=== PATIENT | female | born 1975 | race Caucasian/White ===

== ENCOUNTER → 2023-03-25 | Outpatient (CLI) | payer OTHER, SELFPAY ==
[2023-03-25 17:57] LABS: Erythrocyte Sedimentation Rate 10 mm/hr (0-30)
[2023-03-25 17:58] LABS: Absolute Lymphocyte Count 3.03 X10^3/uL (0.83-4.51); Absolute Neutrophil Count 4.4 X10^3/uL (2.0-7.7); Basophil# 0.04 X10^3/uL; Basophil% 0.5 % (0-1); Eosinophil# 0.38 X10^3/uL; Eosinophils% 4.5 % (0-5); Hematocrit 44.3 % (37-47); Hemoglobin 14.5 g/dL (12.0-15.0); Lymphocyte # 3.03 X10^3/ul (0.83-4.51); Lymphocyte % 35.7 % (19-41); Mean Corp Hgb Conc 32.7 g/dL (32-36); Mean Corpuscular Hgb 31.3 pg (27.0-32.0); Mean Corpuscular Volume 95.7 fL (81-99); Mean Platelet Vol. 10.8 fl (6.2-12.0); Monocyte# 0.65 X10^3/uL; Monocyte% 7.7 % (0-10); NRBC Flagged by Analyzer 0 % (0-5); Neutrophil # 4.36 X10^3/uL (2.7-7.7); Neutrophil % 51.4 % (47-70); Platelet Count 288 K/mm3 (150-450); RBC Distribution Width CV 14.6 % (11.6-14.6); RBC Distribution Width SD 51.4 fl (35.1-43.9); Red Blood Count 4.63 M/mm3 (4.2-5.4); White Blood Count 8.5 K/mm3 (4.4-11.0)
[2023-03-25 18:36] LABS: ALB/GLOB Ratio 0.9 RATIO (0.9-2.4); AST(SGOT) 26 U/L (15-37); Alanine Aminotransfer ALT/SGPT 39 U/L (13-56); Albumin, Serum 3.3 g/dL (3.2-5.0); Alkaline Phosphatase 70 U/L (45-117); Anion Gap 7 (5-15); BUN 13 mg/dL (7-18); BUN/Creat Ratio 21.8 RATIO (10-20); CRP < 2.90 mg/L (0.0-3.0); Calcium,Total 8.6 mg/dL (8.5-10.1); Chloride 106 mmol/L (98-107); EST Glomerular Filtration Rate 114 mL/min (>60); Est Glom Filt Rate - Afr Amer 138 mL/min (>60); Globulin 3.6 g/dL (2.2-4.2); Glucose 73 mg/dL (74-106); Protein, Total 6.9 g/dL (6.4-8.2); Sodium Level 140 mmol/L (136-145)
[2023-03-25 18:47] LABS: Hepatitis B Surface Antibody Non-Reactive; Hepatitis B Surface Antigen Non-Reactive (Nonreactive); Hepatitis C Antibody Non-Reactive (Nonreactive)
[2023-03-28 13:07] LABS: ANTINUCLEAR ANTIBODIES DIRECT Negative (Negative)
[2023-03-29 18:07] LABS: CCP IgG Antibodies > 250 units (0-19); QNTFERON TB Mitogen Value > 10.00 IU/mL (.); QNTFERON TB Nil Value 0.05 IU/mL (.); QNTFERON TB1+ Ag Value 0.07 IU/mL (.); QNTFERON TB2+ Ag Value 0.09 IU/mL (.); QNTIFERON TB Positive Criteria Negative (Negative)
== END | disposition home or self-care (01) ==
LOC: MTLAB 14:25
PROVIDERS: Referring Provider Internal Medicine Rheumatology; Visit Provider Internal Medicine Rheumatology
DX: M05.79 Rheumatoid arthritis with rheumatoid factor of multiple sites without organ or systems involvement (principal); Z79.899 Other long term (current) drug therapy
CPT/HCPCS: 36415; 80053; 85025; 85652; 86038; 86140; 86200; 86431; 86480; 86706; 86803; 87340

== ENCOUNTER → 2023-04-04 | Outpatient (CLI) | payer OTHER, SELFPAY ==
--- NOTE | 2023-04-04 10:50 | RAD_ITS ---
STUDY: X-RAY CHEST REASON FOR EXAM: Female, 47 years old. Pain. TECHNIQUE: Frontal and lateral views of the chest. COMPARISON: None. FINDINGS: The lungs are clear and expanded. There is no demonstrated pleural abnormality. Normal size heart. Normal mediastinum and nai. Normal visualized pulmonary arteries. Normal visualized aortic arch and descending thoracic aorta. Normal visualized thoracic spine. Normal visualized ribs, clavicles, and shoulders. No abnormality of the visualized soft tissue structures of the upper abdomen. RAD/Chest PA and Lateral IMPRESSION: Normal x-ray examination of the chest. Electronically Signed: Curt Andrade MD at 12:44 EST ,
== END | disposition home or self-care (01) ==
LOC: MTRAD 10:49
PROVIDERS: Referring Provider Internal Medicine Rheumatology; Visit Provider Internal Medicine Rheumatology
DX: M05.79 Rheumatoid arthritis with rheumatoid factor of multiple sites without organ or systems involvement (principal); M79.7 Fibromyalgia; Z79.899 Other long term (current) drug therapy
CPT/HCPCS: 71046

== ENCOUNTER → 2023-07-29 | Outpatient (CLI) | payer OTHER, SELFPAY ==
[2023-07-29 17:40] LABS: Absolute Lymphocyte Count 3.17 X10^3/uL (0.83-4.51); Absolute Neutrophil Count 3.3 X10^3/uL (2.0-7.7); Basophil# 0.05 X10^3/uL; Basophil% 0.6 % (0-1); Eosinophil# 0.31 X10^3/uL; Hematocrit 43.1 % (37-47); Hemoglobin 13.7 g/dL (12.0-15.0); Lymphocyte # 3.17 X10^3/ul (0.83-4.51); Lymphocyte % 41.2 % (19-41); Mean Corp Hgb Conc 31.8 g/dL (32-36); Mean Corpuscular Hgb 29.3 pg (27.0-32.0); Mean Corpuscular Volume 92.1 fL (81-99); Mean Platelet Vol. 10.6 fl (6.2-12.0); Monocyte# 0.85 X10^3/uL; NRBC Flagged by Analyzer 0 % (0-5); Neutrophil % 42.9 % (47-70); Platelet Count 258 K/mm3 (150-450); RBC Distribution Width CV 13.8 % (11.6-14.6); RBC Distribution Width SD 46.5 fl (35.1-43.9); Red Blood Count 4.68 M/mm3 (4.2-5.4); White Blood Count 7.7 K/mm3 (4.4-11.0)
[2023-07-29 18:03] LABS: AST(SGOT) 15 U/L (15-37); Alanine Aminotransfer ALT/SGPT 28 U/L (13-56); Albumin, Serum 3.4 g/dL (3.2-5.0); Alkaline Phosphatase 71 U/L (45-117); Anion Gap 4 (5-15); BUN 12 mg/dL (7-18); Calcium,Total 8.5 mg/dL (8.5-10.1); Chloride 106 mmol/L (98-107); Creatinine, Serum 0.57 mg/dL (0.55-1.02); EST Glomerular Filtration Rate 120 mL/min (>60); Est Glom Filt Rate - Afr Amer 145 mL/min (>60); Globulin 3.4 g/dL (2.2-4.2); Glucose 95 mg/dL (74-106); Potassium 3.6 mmol/L (3.5-5.1); Protein, Total 6.8 g/dL (6.4-8.2); Sodium Level 140 mmol/L (136-145)
== END | disposition home or self-care (01) ==
LOC: MTLAB 15:36
PROVIDERS: Referring Provider Internal Medicine Rheumatology; Visit Provider Internal Medicine Rheumatology
DX: M05.79 Rheumatoid arthritis with rheumatoid factor of multiple sites without organ or systems involvement (principal); M79.7 Fibromyalgia; Z79.899 Other long term (current) drug therapy
CPT/HCPCS: 36415; 80053; 85025

== ENCOUNTER → 2023-12-26 | Outpatient (CLI) | payer OTHER, SELFPAY ==
[2023-12-26 15:15] LABS: Absolute Lymphocyte Count 2.89 X10^3/uL (0.83-4.51); Absolute Neutrophil Count 7.1 X10^3/uL (2.0-7.7); Basophil# 0.04 X10^3/uL; Basophil% 0.4 % (0-1); Eosinophil# 0.14 X10^3/uL; Eosinophils% 1.3 % (0-5); Hematocrit 42.7 % (37-47); Hemoglobin 13.7 g/dL (12.0-15.0); Lymphocyte # 2.89 X10^3/ul (0.83-4.51); Lymphocyte % 26.7 % (19-41); Mean Corp Hgb Conc 32.1 g/dL (32-36); Mean Corpuscular Hgb 30.2 pg (27.0-32.0); Mean Corpuscular Volume 94.1 fL (81-99); Mean Platelet Vol. 10.5 fl (6.2-12.0); Monocyte# 0.64 X10^3/uL; Monocyte% 5.9 % (0-10); NRBC Flagged by Analyzer 0 % (0-5); Neutrophil # 7.11 X10^3/uL (2.7-7.7); Neutrophil % 65.5 % (47-70); Platelet Count 245 K/mm3 (150-450); RBC Distribution Width CV 13.9 % (11.6-14.6); Red Blood Count 4.54 M/mm3 (4.2-5.4); White Blood Count 10.8 K/mm3 (4.4-11.0)
[2023-12-26 16:00] LABS: AST(SGOT) 19 U/L (15-37); Alanine Aminotransfer ALT/SGPT 28 U/L (13-56); Albumin, Serum 3.4 g/dL (3.2-5.0); Alkaline Phosphatase 81 U/L (45-117); Anion Gap 4 (5-15); BUN 10 mg/dL (7-18); BUN/Creat Ratio 13.9 RATIO (10-20); Calcium,Total 8.8 mg/dL (8.5-10.1); Chloride 105 mmol/L (98-107); Creatinine, Serum 0.72 mg/dL (0.55-1.02); EST Glomerular Filtration Rate 91 mL/min (>60); Est Glom Filt Rate - Afr Amer 110 mL/min (>60); Globulin 3.4 g/dL (2.2-4.2); Glucose 95 mg/dL (74-106); Potassium 3.7 mmol/L (3.5-5.1); Protein, Total 6.8 g/dL (6.4-8.2); Sodium Level 138 mmol/L (136-145)
== END | disposition home or self-care (01) ==
PROVIDERS: Referring Provider Internal Medicine Rheumatology; Visit Provider Internal Medicine Rheumatology
DX: M05.751 Rheumatoid arthritis with rheumatoid factor of right hip without organ or systems involvement (principal); M79.7 Fibromyalgia; F41.9 Anxiety disorder, unspecified; Q66.70 Congenital pes cavus, unspecified foot; Z79.899 Other long term (current) drug therapy
CPT/HCPCS: 36415; 80053; 85025

== ENCOUNTER 2025-01-22 06:02 | Day surgery (SDC) | payer OTHER, SELFPAY ==
[2025-01-22] VITALS (11 sets, daily range): BP systolic 105–135; BP diastolic 66–81; PULSE 67–85; RESP 14–18; TEMP 36.2–36.9; O2SAT 94–100; BMI 40.1
--- OUTSIDE RECORDS SUMMARY | 2025-01-22 06:06 | XMS RPT_ITS | CCD ---
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 Name Role Phone Unavailable Primary Care Provider Unavaillise HANSEN MD, DR SANDOVAL Attending Unavailabl e ROMAN SIU-MECHATRONICS TECHNOLOGIST, [place] Primary Care Unavai labraleigh OWENS APRN-MECHATRONICS TECHNOLOGIST, ANITRA Attending Rachel OWENS APRN-MECHATRONICS TECHNOLOGIST, [place] Primary Care Unamanishai lucina OWENS APRN-MECHATRONICS TECHNOLOGIST, ANITRA Attending Rachel OWENS APRN-MECHATRONICS TECHNOLOGIST, [place] Primary Care YONY Douglas MD Attending Unavailable ROMAN SIU-MECHATRONICS TECHNOLOGIST, [place] Primary Care YONY Douglas MD Attending Unavailable ROMAN SIU-[place], [place] Primary Care YONY Douglas MD Attending Unavailable ROMAN SIU-MECHATRONICS TECHNOLOGIST, [place] Primary Care Unavai lable Unavailable Primary Care Provider Unavailabl e Care Physician, No Primary Primary Care Provider Unavailable Care Physician, No Primary Referring Provider Un available Dr. Devang Rhodes DO Attending Provider Maria Elena SOLIS, Dr. Olivo Attending Provider SELF Referring Unavailable ROMAN ANITRA Primary Care Unavailable MARTHA NIELSEN Attending Unavailable JADE SOLIS, DR SANDOVAL Attending Unavaillise e ROMAN SIU-MECHATRONICS TECHNOLOGIST, [place] Primary Care Unafilippo OWENS APRN-[place], ANITRA Consulting Rachel HANSEN MD, DR SANDOVAL Attending Unavaillise OWENS APRN-MECHATRONICS TECHNOLOGIST, [place] Primary Care Rachel HANSEN MD, DR SANDOVAL Attending Unavaillise e ROMAN SIU-MECHATRONICS TECHNOLOGIST, [place] Primary Care Unavai lucina DAVID, ANITRA Consulting Rachel HANSEN MD, DR SANDOVAL Attending Valdez DAVID, ANITRA Primary Care Rachel DAVID, ANITRA Attending Rachel DAVID, ANITRA Primary Care Rachel labraleigh Care Physician, No Primary Primary Care Unava ilable Geovani Arredondo Attending Unavailable Devang Rhodes Attending Unavailable Care Physician, No Primary Referring Unava ilable Care Physician, No Primary Primary Care Unava ilable Care Physician, No Primary Primary Care Unava ilable Devang Rhodes Attending Unavailable Allergies Allergy Classification Reported Allergen(s) Allergy Type Date of Onset Reaction(s) Facility (4 sources) Acetaminophen / HYDROcodone; Translations: [HYDROCODONE-ACETA MINOPHEN] Drug Allergy 9 Rash, Itching [facility] (2 sources) Acetaminophen Drug Allergy 5 [facility] (2 sources) HYDROcodone Drug Allergy 5 [facility] (1 source) Acetaminophen Drug Allergy [address] [facility] (1 source) HYDROcodone Drug Allergy [address] [facility] Medications Current Medications Medication Drug Class(es) Dates Sig (Normalized) Sig (Original) acetaminophen 325 mg oral tablet (2 sources) Start: 12-19-2024 take 1 tablet by mouth once as needed Acetaminophen (Tylenol) 325 mg tablet Active 325 mg PO ONCE as needed December 19, 2024 12:00am amoxicillin 500 mg oral capsule (1 source) Penicillin-class Antibacterial Start: 04-19-2023 End: 04-29-2023 take 2 capsules by mouth twice daily amoxicillin (AMOXIL) 500 mg capsule Indications: Strep throat Take 2 capsules by mouth two times a day for 10 days. 40 capsule 0 04/19/2023 04/29/2023 Active Comment on above: Take 2 capsules by m outh two times a day for 10 days. 1 ml etanercept 50 mg/ml auto-injector (2 sources) Tumor Necrosis Factor Lavonne Start: 12-19-2024 Etanercept (Enbrel Sureclick) 50 mg/mL (1 mL) pen injector Active 50 mg SC EVERY WEEK December 19, 2024 12:00am folic acid 1 mg oral tablet (3 sources) Start: 12-19-2024 take 2 tablets by mouth once daily Folic Acid 1 mg tablet Active 2 mg PO daily December 19, 2024 12:00am Start: 04-04-2023 take 1 tablet by mouth once fo lic acid 1 mg tablet Take 1 tablet by mouth every afternoon. 0 04/04/2023 Active Comment on above: Take 1 tablet by netta th every afternoon. gabapentin 100 mg oral capsule (2 sources) Anti-epileptic Agent Start: 5 take 1 capsule by mouth three times daily Gabapentin 100 mg capsule Active 100 mg PO THREE TIMES A DAY December 19, 2024 12:00am meloxicam 15 mg oral tablet (5 sources) Nonsteroidal Anti-inflammatory Drug Start: 5 take 1 tablet by mouth once daily as needed Meloxicam 15 mg tablet Active 15 mg PO daily as needed December 19, 2024 12:00am Start: 09-20-2022 take 1 tablet by netta th once daily at mealtime meloxicam (MOBIC) 15 mg tablet TAKE ONE TABLET BY MOUTH EVERY DAY. TAKE WITH FOOD / MILK 09/20/2022 Active Comment on above: TAKE ONE TABLET BY M OUTH EVERY DAY. TAKE WITH FOOD / MILK methotrexate 2.5 mg oral tablet (3 sources) Folate Analog Metabolic Inhibitor Start: 12-19-2024 Methotrexate Sodium 2.5 mg tablet Active 20 mg PO EVERY WEEK December 19, 2024 12:00am Start: 04-02-2023 methotrexate 2 .5 mg tablet Take 15 mg by mouth. 0 04/02/2023 Active Comment on above: Take 15 mg by mouth. valACYclovir 1000 mg oral tablet (1 source) Herpesvirus Nucleoside Analog DNA Polymerase Inhibitor, Herpes Simplex Virus Nucleoside Analog DNA Polymerase Inhibitor, Herpes Zoster Virus Nucleoside Analog DNA Polymerase Inhibitor Start: 3 End: 3 take 1 tablet by mouth three times daily valACYclovir (VALTREX) 1 gram Indications: Herpes zoster without complication Take 1 tablet by mouth three times daily for 7 days. 21 tablet 0 10/14/2022 10/21/2022 Active Comment on above: Take 1 tablet by netta th three times daily for 7 days. Completed/Discontinued Medications Medication Drug Class(es) Dates Sig (Normalized) Sig (Original) PARoxetine hydrochloride 20 mg oral tablet (1 source) Serotonin Reuptake Inhibitor Start: 03-03-2023 take 1 tablet by mouth once PARoxetine (PAXIL) 20 mg tablet Take 1 tablet by mouth every afternoon. 0 03/03/2023 Active Comment on above: Take 1 tablet by netta th every afternoon. Problems Active Problems Problem Classification Problem Date Documented Date Episodic/Chronic Other ear and sense organ disorders (1 source) Impacted cerumen, right ear; Translations: [Impacted cerumen of right ear] Onset: 12-20-2024 Episodic Other non-traumatic joint disorders (1 source) Pain in right elbow; Translations: [Pain in right elbow] Onset: 12-19-2024 Episodic Other upper respiratory infections (1 source) Streptococcal sore throat; Translations: [Streptococcal pharyngitis] 04-19-2023 Episodic Otitis media and related conditions (1 source) Acute serous otitis media, right ear; Translations: [Non-recurrent acute serous otitis media of right ear] Onset: 12-20-2024 Episodic Rheumatoid arthritis and related disease (4 sources) Rheumatoid arthritis with rheumatoid factor of multiple sites without organ or systems involvement; Translations: [Inflammatory polyarthropathy] Onset: 12-08-2022 Chronic Viral infection (1 source) Herpes zoster without complication; Translations: [Zoster without complications] Episodic Past or Other Problems Problem Classification Problem Date Documented Date Episodic/Chronic Immunizations and screening for infectious disease (4 sources) Other specified abnormal immunological findings in serum; Translations: [Encounter for screening for other viral diseases] Onset: 11-01-2022 Episodic Results Test Name Value Interpretation Reference Range Facility [facility] 01-08-2025 Cholesterol [Mass/Vol] 177 mg/dL Normal 0-200 JUDAH MASSILLON Comment on above: Result Comment: Chol esterol Reference Interval: Less than 200 Desirable 200-239 Borderline high risk 240 and above High risk Performed By: #### L IPID #### [facility] [address] [place], [place] [address] #### TSHR, PTH #### [place] [address] Cholesterol in HDL [Mass/Vol] 53 mg/dL Normal 40-60 JUDAH MASSILLON Comment on above: Performed By: #### L IPID #### [facility] [address] [place], [place] [address] #### TSHR, PTH #### [place] [address] Cholesterol in LDL [Mass/Vol] 112 mg/dL Normal 0-130 JUDAH MASSILLON Comment on above: Performed By: #### L IPID #### [facility] [address] [place] [address] #### TSHR, PTH #### [place] [address] Triglyceride [Mass/Vol] 58 mg/dL Normal 0-150 JUDAH MASSILLON Comment on above: Performed By: #### L IPID #### [facility] [address] [place] [address] #### TSHR, PTH #### [place] [address] PTHon 01-08-2025 PTH, Intact 51.4 pg/mL Normal 18.5-88.0 JUDAH MASSILLON Comment on above: Performed By: #### L IPID #### [facility] [address] [place] [address] #### TSHR, PTH #### [place] [address] TSHRon 01-08-2025 TSH 2.649 mIU/mL Normal 0.550-4.780 JUDAH MASSILLON Comment on above: Performed By: #### L IPID #### [facility] [address] [place] [address] #### TSHR, PTH #### [place] [address] CNOVon 12-20-2024 CNOV Office Visit ([facility] ) BRANDI HOLCOMB ([id number]) 1975 F Date Time Provider Department 12/20/24 5:25 PM MARTHA NIELSEN During your visit today, we recorded the following information about you: Temperature Pulse Respiration Blood pressure 97.6 degrees 95/minute 18/minute 118/78 Weight 107.3 kg Kyung Foote LPN 12/20/2024 6:21 PM Signed Ambulatory Ear Lavage Pre-treatment: No pre-treatment Treatment: Right ear Equipment and Irrigation solution and Volume used: Single use syringe with single use irrigation tip Water Return flow appearance: Clear Debris Patient tolerated procedure: yes Tympanic membrane assessment: Tympanic membrane assessed by LIP pre and post procedure BOONE Machuca Edmund, DO 12/20/2024 6:01 PM Signed Otitis Media You have been diagnosed with otitis media. This is a middle ear infection. Otitis media is inflammation of the middle ear. It is most common in children 6 months to 3 years old. However, it can happen at any age. It is caused by either a bacteria or a virus and often follows a viral upper respiratory (lung) infection. Some otitis media symptoms are: Fever (temperature higher than 100.4?F / 38?C) and ear pain. There may also be a feeling of fullness in the ear or decreased hearing. If the eardrum ruptures (splits), there may also be drainage from the ear. In the [facility], otitis media is often treated with antibiotics. It is also often treated with pain medicines like acetaminophen (Tylenol?) or ibuprofen (Advil? or Motrin?) and sometimes with pain-relieving eardrops. In many other countries, otitis media is not treated with antibiotics. However, the outcome seems to be the same: The ear clears up on its own! Most cases of otitis media get better over 2-3 days with treatment. Take the antibiotic as directed and finish the whole prescription. Follow up with your doctor in 4-6 weeks. This will be to make sure the fluid in the middle ear has cleared. YOU SHOULD SEEK MEDICAL ATTENTION IMMEDIATELY, EITHER HERE OR AT THE NEAREST EMERGENCY DEPARTMENT, IF ANY OF THE FOLLOWING OCCURS: You do not get better, despite treatment. Symptoms become worse. A severe headache, stiff neck, lethargy (excessive fatigue and sleepiness) or confusion develops. Martha Nielsen DO 12/20/2024 6:21 PM Signed [facility] RAFAEL Bucknerfer L Zhang is a 49 year old female. Patient presents with: Ear Problem: Right ear pain x 1 week Ear Problem Right Ear Pain: - Acute onset of right ear pain, described as shooting pains, not constant. - Pain was severe upon waking, possibly due to lying on the affected ear. - Noted a lump behind the ear. - Recent travel to [place] approximately 1.5 weeks ago. - Denies use of Q-tips in ears, known insect bites, fevers, chills, chest pain, or dyspnea. - No pain in the external ear. Review of Systems HENT: Positive for ear pain. Constitutional: (-) fever, (-) chills Ears/Nose/Mouth/Throat: (+) right ear pain Cardiovascular: (-) chest pain Respiratory: (-) dyspnea Objective BP 118/78 Pulse 95 Temp 36.4 ?C (97.6 ?F) Resp 18 Wt 107.3 kg (236 lb 9.6 oz) SpO2 97% Physical Exam HENT: Nose: Congestion and rhinorrhea present. Mouth/Throat: Mouth: Mucous membranes are moist. Pharynx: Oropharynx is clear. No oropharyngeal exudate or posterior oropharyngeal erythema. Eyes: General: Right eye: No discharge. Left eye: No discharge. Conjunctiva/sclera: Conjunctivae normal. Pupils: Pupils are equal, round, and reactive to light. Musculoskeletal: Cervical back: Normal range of motion. No rigidity or tenderness. Lymphadenopathy: Cervical: No cervical adenopathy. General: No acute distress. HEENT: Right external ear canal erythema, cerumen impaction occluding approximately 50% of right ear canal, left ear canal normal, mild nasal congestion, no significant lymphadenopathy. CV: Normal heart sounds. Resp: Lungs clear to auscultation bilaterally. {ASSESSMENT/PLAN: 1. Non-recurrent acute serous otitis media of right ear - ICD9: 381.01, ICD10: H65.01 (primary diagnosis) - AMOXICILLIN 875 MG-POTASSIUM CLAVULANATE 125 MG TABLET - AMBULATORY EAR LAVAGE/IRRIGATION 2. Impacted cerumen of right ear - ICD9: 380.4, ICD10: H61.21 - Exam shows early signs of right-sided otitis media with approximately 50% cerumen impaction. - Attempted cerumen removal in clinic; if unsuccessful, will prescribe cerumenolytic drops for home use. Cerumen removal in clinic was successful, 100% of wax removed, tympanic membrane is still intact afterwards. - Augmentin will be written to help treat otitis media and prevent other symptoms. Get reevaluated if not improving after 1 week. - Advised use of Tylenol or ibuprofen for pain; encouraged adequate hydration and cl (more content not included)... Normal [facility] Elbow min 3 Viewson 12-20-19 Elbow min 3 Views [facility] [address] [place] [address] Elbow min 3 Views MR#: [id number] Acct: [id number] Name: BRANDI HOLCOMB Rep #: [id number] : 1975 F 49 From: Mike Stallworth PCP: Care Physician,No Primary Status: DEP AMB Study: Elbow min 3 Views Date of Exam: 12/19/24 Exam# [id number] Ordering Dr: Devang Rhodes DO PROCEDURE: ELBOW MIN 3 VIEWS 12/19/2024 REASON FOR EXAM: LUMP, PAIN TECHNIQUE: ELBOW MIN 3 VIEWS COMPARISON: None. RAD/Elbow min 3 Views IMPRESSION: No radiopaque foreign body is seen. A soft tissue prominence is seen posterior to the ulnar olecranon, possibly representing fluid within the olecranon bursa. No arthritic process or joint narrowing is seen. No right elbow joint effusion is noted. No fracture or dislocation is evident. Reading Location: [facility] CC: Dr. Devang Rhodes DO; No Primary Care Physician Carbonizer: Signed Normal [facility] Orthopedic Visit Reporton Orthopedic Visit Report [facility] [address] [place] [address] [address] [place] [address] OFFICE VISIT Date of Service: 12/19/24 MR#: [id number] Acct: [id number] Name: ZHANGBRANDINE Rep #: [id number] : 1975 Provider: Dr. Devang raphael DO Age/Sex: 49/F Location[place] [facility] Status: Signed Intake Vital Signs 12/19/24 09:01 Height 5 ft 4 in Weight: 233 lb BMI 39.9 Intake Visit Reasons: RIGHT ELBOW Allergies acetaminophen (From Vicodin) Allergy (Verified 12/19/24 09:01) Vomiting hydrocodone (From Vicodin) Allergy (Verified 12/19/24 09:01) Vomiting Medications ???Medication ???Instructions ???Recorded ???Confirmed ???Type acetaminophen 325 mg tablet 325 mg PO ONCE PRN 12/19/24 History (Tylenol) etanercept 50 mg/mL (1 mL) 50 mg subcut QWEEK 12/19/24 History subcutaneous pen injector (Enbrel SureClick) folic acid 1 mg tablet 2 mg PO QDAY 12/19/24 12/19/24 His tory gabapentin 100 mg capsule 100 mg PO TID 12/19/24 12/19/24 Hi story meloxicam 15 mg tablet 15 mg PO QDAY PRN 12/19/24 5 History methotrexate sodium 2.5 mg tablet 20 mg PO QWEEK 12/19/24 12/19/24 History PFSH Medical History (Updated 12/19/24 @ 10:[address] Devang Rhodes DO) Rheumatoid arthritis Surgical History (Updated 12/19/24 @ 09:04 by Sara Cabrera) History of right knee surgery History of partial hysterectomy Social History (Updated 12/19/24 @ 09:05 by Sara Cabrera) Smoking Status: Current every day smoker tobacco type: cigarettes alcohol intake: current alcohol intake frequency: holidays/special occasions only HPI RIGHT ELBOW Details: This documentation accurately reflects the service provided and the decisions made by me, Dr. Devang Rhodes DO 12/19/24 6010. Part of today???s visit was documented by Shirley COUCH, acting as scribe. BRANDI HOLCOMB is a 49 year old F referral from Dr. Hansen who is seropositive anti-CCP positive rheumatoid arthritis who also has lateral epicondylitis she is on methotrexate 20 mg/week and Enbrel 50 mg subcu once a week, meloxicam here today for right elbow pain that she has been having for 2 years. She denies any know injury and states that she thinks the pain is from arthritis. She does have a lump on the elbow that she states that Dr. Mulligan wants her to have it biopsied to see whether is is from her rheumatoid arthritis. She has had the lump for at least 4 years. She was diagnosed with rheumatoid 2 years ago. She denies having any treatment on the elbow. The nodule does bother her every time she rests her elbow down it aggravates. Ortho Exam General General: Yes no acute distress Neurologic: Yes alert and Yes oriented x3 Psychologic: Yes reasonable and appropriate Right Elbow Skin/Wound: No eccymosis, No erythema and No Swelling ELBOW: small 1.5cm nodule on tip of olecranon, it is mobile it is not infectious appearing there is no erythema there is no bursal swelling there is no joint effusion she got good elbow range of motion no collateral instability intact triceps tendon no pain with resisted extension No gross motor or sensory deficits Supplemental Info 12/19/2024 x-ray right elbow: There is no significant arthrosis there is soft tissue swelling just posterior to the olecranon. No joint effusion Coding Level of Care Code Off vis,new,level 3 Diagnoses Rheumatoid nodule of right elbow M06.321 Laterality: right Assessment and Plan Assessment and Plan (1) Rheumatoid nodule of elbow: Status: Acute Qualifiers: Laterality: right Qualified Code(s): M06.321 - Rheumatoid nodule, right elbow Orders: Orders Elbow min 3 Views Today M25.521 - Pain in right elbow Plan Patient is here today for right elbow nodule with pain. I spoke with patient that the nodule on her elbow is highly suggestive of a rheumatoid nodule, and clinically I am not concerned of it being n eoplastic it is not grown is consistent with a rheumatoid nodule. It does bother her daily, we can remove the nodule if she would want it to have it removed or we can leave it alone. My concern with removing the nodule is her rheumatoid medications cause immunosuppression and increase her risk for infection. Patient does wish to proceed with surgery for excision of right elbow nodule we will send it for pathology. She will need to hold her Meloxicam and Enbrel 1 week before surgery then she will also need to hold the Enbrel 1 week after surgery. Wrist benefits of surgery reviewed including risk of bleeding infection nerve artery tissue damage need with further surgery continued pain and nodule reoccurrence. Follow up at 2 weeks post-op or sooner if pain, swelling, numbness or associated symptoms, or concerns develop. All questions answered. P (more content not included)... Normal [facility] .Auto Diffon 11-22-2024 Basophil, Absolute 0.1 10 3/mcL Normal 0.0-0.3 ENMA MAN MASSILLON Comment on above: Performed By: #### G FR, CMP #### [facility] [address] [place], [place] [address] #### ANEU, CBC, ADIFF #### [address] [address] Basophils/100 WBC (Bld) 0.9 % Normal 0.0-2.5 JUDAH MASSILLON Comment on above: Performed By: #### G FR, CMP #### [facility] [address] [place], [place] [address] #### ANEU, CBC, ADIFF #### [address] [address] Eosinophil, Absolute 0.3 10 3/mcL Normal 0.0-0.7 JUDAH MASSILLON Comment on above: Performed By: #### G FR, CMP #### [facility] [address] [place] [id number] #### ANEU, CBC, ADIFF #### [address] [address] Eosinophils/100 WBC (Bld) 4.1 % Normal 0.0-6.0 JUDAH MASSILLON Comment on above: Performed By: #### G FR, CMP #### [facility] [address] [place], [place] [address] #### ANEU, CBC, ADIFF #### [address] [address] Lymphocyte, Absolute 2.3 10 3/mcL Normal 0.9-4.3 JUDAH MASSILLON Comment on above: Performed By: #### G FR, CMP #### [facility] [address] [place], [place] [address] #### ANEU, CBC, ADIFF #### [address] [address] Lymphocytes/100 WBC (Bld) 35.5 % Normal 20.0-40.0 JUDAH MASSILLON Comment on above: Performed By: #### G FR, CMP #### [facility] [address] [place], [place] [address] #### ANEU, CBC, ADIFF #### [address] [address] Monocyte, Absolute 0.7 10 3/mcL Normal 0.1-1.4 ENMA MAN MASSILLON Comment on above: Performed By: #### G FR, CMP #### [facility] [address] [place], [place] [address] #### ANEU, CBC, ADIFF #### [address] [address] Monocytes/100 WBC (Bld) 10.2 % Normal 2.0-13.0 JUDAH MASSILLON Comment on above: Performed By: #### G FR, CMP #### [facility] [address] [place], [place] [address] #### ANEU, CBC, ADIFF #### [address] [address] Neutrophils/100 WBC (Bld) 49.3 % Low 50.0-75.0 JUDAH MASSILLON Comment on above: Performed By: #### G FR, CMP #### [facility] [address] [place], [place] [address] #### ANEU, CBC, ADIFF #### [address] [address] .GFRon 11-22-2024 Estimated Glomerular Filtration Rate 107 ml/min/1.73sqm Normal JUDAH MASSILLON Comment on above: Result Comment: Stages of Chronic Kidney Disease (CKD) Stage Description eGFR(ml/min/1.73 sq.m.) CKD 1 Normal kidney function or >=90 normal kindney function with possible kidney damage (ex. Proteinuria) CKD 2 Kidney damage with mild loss 60-89 of kidney function CKD 3a Mild to moderate loss of kidney 45-59 function CKD 3b Moderate to severe loss of 30-44 of kindey function CKD 4 Severe loss of kidney function 15-29 CKD 5 Kidney failure <15 Note: (go live 2024) the eGFR calculation was updated to the 2020 CKD-EPI creatinine equation without a race factor to calculate the eGFR results. Performed By: #### G FR, CMP #### [facility] [address] [place] [id number] #### ANEU, CBC, ADIFF #### [place] [address] .NEUABSon 11-22-2024 Neutrophil, Absolute 3.2 10 3/mcL Normal 2.3-8.1 [facility] Comment on above: Performed By: #### G FR, CMP #### [facility] [address] [place] [address] #### ANEU, CBC, ADIFF #### [place] [address] CBCon 11-22-2024 Erythrocyte distribution width (RBC) [Ratio] 14.7 % Normal 11.5-15.5 GENESEE MASSILLON Comment on above: Performed By: #### G FR, CMP #### [facility] [address] [place] [id number] #### ANEU, CBC, ADIFF #### [place] [address] Hematocrit (Bld) [Volume fraction] 41.8 % Normal 34.0-46.0 [facility] Comment on above: Performed By: #### G FR, CMP #### [facility] [address] [place] [id number] #### ANEU, CBC, ADIFF #### [place] [address] Hgb 14.0 G/dL Normal 12.0-16.0 GENESEE MASSILLON Comment on above: Performed By: #### G FR, CMP #### [facility] [address] [place] [id number] #### ANEU, CBC, ADIFF #### [place] [id number] MCH (RBC) [Entitic mass] 31.9 pg Normal 27.0-33.0 JUDAH MASSILLON Comment on above: Performed By: #### G FR, CMP #### [facility] [address] [place] [address] #### ANEU, CBC, ADIFF #### [place] [address] MCHC 33.4 G/dL Normal 32.0-36.0 JUDAH MASSILLON Comment on above: Performed By: #### G FR, CMP #### [facility] [address] [place] [address] #### ANEU, CBC, ADIFF #### [place] [address] MCV (RBC) [Entitic vol] 95.5 fL Normal 80.0-99.0 JUDAH MASSILLO Comment on above: Performed By: #### G FR, CMP #### [facility] [address] [place] [address] #### ANEU, CBC, ADIFF #### [place] [address] Platelet 286 10 3/mcL Normal 150-450 JUDAH MASSILLON Comment on above: Performed By: #### G FR, CMP #### [facility] [address] [place] [address] #### ANEU, CBC, ADIFF #### [place] [address] Platelet mean volume (Bld) [Entitic vol] 9.2 fL Normal 6.6-10.5 JUDAH MASSILLON Comment on above: Performed By: #### G FR, CMP #### [facility] [address] [place] [address] #### ANEU, CBC, ADIFF #### [place] [address] RBC 4.38 10 6/mcL Normal 4.10-5.30 JUDAH MASSILLON Comment on above: Performed By: #### G FR, CMP #### [facility] [address] [place] [id number] #### ANEU, CBC, ADIFF #### [place] [address] WBC 6.4 10 3/mcL Normal 4.5-10.8 JUDAH MASSILLON Comment on above: Performed By: #### G FR, CMP #### [facility] [address] [place], [place] [address] #### ANEU, CBC, ADIFF #### [place] [address] CMPon 11-22-2024 Albumin Level 3.3 G/dL Low 3.5-5.0 JUDAH MASSILLON Comment on above: Performed By: #### G FR, CMP #### [facility] [address] [place] [address] #### ANEU, CBC, ADIFF #### [place] [address] Albumin/Globulin [Mass ratio] 1.0 {ratio} Low 1.1-2.5 JUDAH MASSILLON Comment on above: Performed By: #### G FR, CMP #### [facility] [address] [place] [id number] #### ANEU, CBC, ADIFF #### [place] [address] ALP [Catalytic activity/Vol] 79 U/L Normal 40-135 JUDAH MASSILLON Comment on above: Performed By: #### G FR, CMP #### [facility] [address] [place] [id number] #### ANEU, CBC, ADIFF #### [place] [id number] ALT [Catalytic activity/Vol] 39 U/L Normal 14-59 JUDAH MASSILLON Comment on above: Performed By: #### G FR, CMP #### [facility] [address] [place] [id number] #### ANEU, CBC, ADIFF #### [place] [id number] AST [Catalytic activity/Vol] 24 U/L Normal 10-40 JUDAH MASSILLON Comment on above: Performed By: #### G FR, CMP #### [facility] [address] [place], [place] [address] #### ANEU, CBC, ADIFF #### [address] [address] Bili Total 0.4 mg/dL Normal 0.2-1.0 JUDAH MASSILLON Comment on above: Result Comment: Use of this assay is not recommended for patients undergoing treatment with eltrombopag due to the potential for falsely elevated results. Performed By: #### G FR, CMP #### [facility] [address] [place] [id number] #### ANEU, CBC, ADIFF #### [address] [address] BUN/Creatinine Ratio 15 ratio Normal 7-27 JUDAH MASSILLON Comment on above: Performed By: #### G FR, CMP #### [facility] [address] [place] [id number] #### ANEU, CBC, ADIFF #### [address] [address] Calcium [Mass/Vol] 8.7 mg/dL Normal 8.4-10.2 AULTMA N MASSILLON Comment on above: Performed By: #### G FR, CMP #### [facility] [address] [place] [id number] #### ANEU, CBC, ADIFF #### [address] [address] Chloride [Moles/Vol] 105 mmol/L Normal 98-107 JUDAH MASSILLON Comment on above: Performed By: #### G FR, CMP #### [facility] [address] [place] [id number] #### ANEU, CBC, ADIFF #### [address] [address] CO2 [Moles/Vol] 28 mmol/L Normal 22-29 JUDAH MASSILLON Comment on above: Performed By: #### G FR, CMP #### [facility] [address] [place] [id number] #### ANEU, CBC, ADIFF #### [facility] [address] [place], [place] [id number] Creatinine [Mass/Vol] 0.66 mg/dL Normal 0.51-0.95 JUDAH MASSILLON Comment on above: Performed By: #### G FR, CMP #### [facility] [address] [place] [id number] #### ANEU, CBC, ADIFF #### [facility] [address] [place] [address] Electrolyte Balance 7.0 mEq/L Normal 4.0-15.0 AULTM AN MASSILLON Comment on above: Performed By: #### G FR, CMP #### [facility] [address] [place] [id number] #### ANEU, CBC, ADIFF #### [place] [address] Globulin 3.3 G/dL Normal 2.7-4.4 JUDAH MASSILLON Comment on above: Performed By: #### G FR, CMP #### [facility] [address] [place] [id number] #### ANEU, CBC, ADIFF #### [place] [address] Glucose [Mass/Vol] 127 mg/dL High 70-105 AULTMA N MASSILLON Comment on above: Performed By: #### G FR, CMP #### [facility] [address] [place] [id number] #### ANEU, CBC, ADIFF #### [place] [id number] Potassium [Moles/Vol] 3.8 mmol/L Normal 3.5-5.1 JUDAH MASSILLON Comment on above: Performed By: #### G FR, CMP #### [facility] [address] [place] [id number] #### ANEU, CBC, ADIFF #### [place] [id number] Sodium [Moles/Vol] 140 mmol/L Normal 136-145 AULTMA N MASSILLON Comment on above: Performed By: #### G FR, CMP #### [facility] [address] [place] [id number] #### ANEU, CBC, ADIFF #### [place] [address] Total Protein 6.6 G/dL Normal 6.4-8.2 JUDAH MASSILLON Comment on above: Performed By: #### G FR, CMP #### [facility] [address] [place] [address] #### ANEU, CBC, ADIFF #### [place] [address] Urea nitrogen [Mass/Vol] 10 mg/dL Normal 7-18 JUDAH MASSILLON Comment on above: Performed By: #### G FR, CMP #### [facility] [address] [place] [address] #### ANEU, CBC, ADIFF #### [place] [address] .Auto Diffon 08-27-2024 Basophil, Absolute 0.1 10 3/mcL Normal 0.0-0.3 ENMA MAN MASSILLON Comment on above: Performed By: #### G FR, CMP #### [facility] [address] [place] [address] #### ANEU, CBC, ADIFF #### [place] [address] Basophils/100 WBC (Bld) 0.7 % Normal 0.0-2.5 JUDAH MASSILLON Comment on above: Performed By: #### G FR, CMP #### [facility] [address] [place] [id number] #### ANEU, CBC, ADIFF #### [place] [address] Eosinophil, Absolute 0.3 10 3/mcL Normal 0.0-0.7 JUDAH MASSILLON Comment on above: Performed By: #### G FR, CMP #### [facility] [address] [place] [id number] #### ANEU, CBC, ADIFF #### [address] [address] Eosinophils/100 WBC (Bld) 4.0 % Normal 0.0-6.0 JUDAH MASSILLON Comment on above: Performed By: #### G FR, CMP #### [facility] [address] [place], [place] #### ANEU, CBC, ADIFF #### [facility] [address] [place] [address] Lymphocyte, Absolute 2.9 10 3/mcL Normal 0.9-4.3 JUDAH MASSILLON Comment on above: Performed By: #### G FR, CMP #### [facility] [address] [place], [place] [address] #### ANEU, CBC, ADIFF #### [address] [address] Lymphocytes/100 WBC (Bld) 39.0 % Normal 20.0-40.0 JUDAH MASSILLON Comment on above: Performed By: #### G FR, CMP #### [facility] [address] [place], [place] [address] #### ANEU, CBC, ADIFF #### [address] [address] Monocyte, Absolute 0.7 10 3/mcL Normal 0.1-1.4 ENMA MAN MASSILLON Comment on above: Performed By: #### G FR, CMP #### [facility] [address] [place] [id number] #### ANEU, CBC, ADIFF #### [address] [address] Monocytes/100 WBC (Bld) 9.6 % Normal 2.0-13.0 JUDAH MASSILLON Comment on above: Performed By: #### G FR, CMP #### [facility] [address] [place], [place] [address] #### ANEU, CBC, ADIFF #### [address] [address] Neutrophils/100 WBC (Bld) 46.7 % Low 50.0-75.0 JUDAH MASSILLON Comment on above: Performed By: #### Radha FR, CMP #### [facility] [address] [place] [id number] #### ANEU, CBC, ADIFF #### [place] [address] .GFRon 08-27-2024 Estimated Glomerular Filtration Rate 104 ml/min/1.73sqm Normal [facility] Comment on above: Result Comment: Stages of Chronic Kidney Disease (CKD) Stage Description eGFR(ml/min/1.73 sq.m.) CKD 1 Normal kidney function or >=90 normal kindney function with possible kidney damage (ex. Proteinuria) CKD 2 Kidney damage with mild loss 60-89 of kidney function CKD 3a Mild to moderate loss of kidney 45-59 function CKD 3b Moderate to severe loss of 30-44 of kindey function CKD 4 Severe loss of kidney function 15-29 CKD 5 Kidney failure <15 Note: (go live 2024) the eGFR calculation was updated to the 2020 CKD-EPI creatinine equation without a race factor to calculate the eGFR results. Performed By: #### Radha THEODORE, CMP #### [facility] [address] [place] [address] #### ANEU, CBC, ADIFF #### [place] [address] .NEUABSon 08-27-2024 Neutrophil, Absolute 3.5 10 3/mcL Normal 2.3-8.1 [facility] Comment on above: Performed By: #### Radha FR, CMP #### [facility] [address] [place] [id number] #### ANEU, CBC, ADIFF #### [place] [address] CBCon 08-27-2024 Erythrocyte distribution width (RBC) [Ratio] 14.9 % Normal 11.5-15.5 JUDAH MASSILLON Comment on above: Performed By: #### Radha FR, CMP #### [facility] [address] [place] [id number] #### ANEU, CBC, ADIFF #### [place] [address] Hematocrit (Bld) [Volume fraction] 43.6 % Normal 34.0-46.0 [facility] Comment on above: Performed By: #### G FR, CMP #### [facility] [address] [place] [id number] #### ANEU, CBC, ADIFF #### [facility] [address] [place] [address] Hgb 14.3 G/dL Normal 12.0-16.0 [facility] Comment on above: Performed By: #### G FR, CMP #### [facility] [address] [place] [address] #### ANEU, CBC, ADIFF #### [place] [address] MCH (RBC) [Entitic mass] 31.3 pg Normal 27.0-33.0 [facility] Comment on above: Performed By: #### G FR, CMP #### [facility] [address] [place] [id number] #### ANEU, CBC, ADIFF #### [place] [address] MCHC 32.8 G/dL Normal 32.0-36.0 [facility] Comment on above: Performed By: #### G FR, CMP #### [facility] [address] [place] [id number] #### ANEU, CBC, ADIFF #### [place] [address] MCV (RBC) [Entitic vol] 95.2 fL Normal 80.0-99.0 [facility] Comment on above: Performed By: #### G FR, CMP #### [facility] [address] [place] [id number] #### ANEU, CBC, ADIFF #### [place] [address] Platelet 253 10 3/mcL Normal 150-450 [facility] Comment on above: Performed By: #### G FR, CMP #### [facility] [address] [place] [id number] #### ANEU, CBC, ADIFF #### [place] [address] Platelet mean volume (Bld) [Entitic vol] 8.6 fL Normal 6.6-10.5 JUDAH MASSILLON Comment on above: Performed By: #### G FR, CMP #### [facility] [address] [place] [address] #### ANEU, CBC, ADIFF #### [place] [address] RBC 4.58 10 6/mcL Normal 4.10-5.30 JUDAH MASSILLON Comment on above: Performed By: #### G FR, CMP #### [facility] [address] [place] [address] #### ANEU, CBC, ADIFF #### [place] [address] WBC 7.6 10 3/mcL Normal 4.5-10.8 JUDAH MASSILLON Comment on above: Performed By: #### G FR, CMP #### [facility] [address] [place] [address] #### ANEU, CBC, ADIFF #### [place] [address] CMPon 08-27-2024 Albumin Level 3.4 G/dL Low 3.5-5.0 JUDAH MASSILLON Comment on above: Performed By: #### G FR, CMP #### [facility] [address] [place] [address] #### ANEU, CBC, ADIFF #### [place] [address] Albumin/Globulin [Mass ratio] 1.0 {ratio} Low 1.1-2.5 JUDAH MASSILLON Comment on above: Performed By: #### G FR, CMP #### [facility] [address] [place] [address] #### ANEU, CBC, ADIFF #### [place] [address] ALP [Catalytic activity/Vol] 89 U/L Normal 40-135 JUDAH MASSILLON Comment on above: Performed By: #### G FR, CMP #### [facility] [address] [place] [id number] #### ANEU, CBC, ADIFF #### [facility] [address] [place], [place] [phone] ALT [Catalytic activity/Vol] 39 U/L Normal 14-59 JUDAH MASSILLON Comment on above: Performed By: #### G FR, CMP #### [facility] [address] [place] [address] #### ANEU, CBC, ADIFF #### [place] [address] AST [Catalytic activity/Vol] 21 U/L Normal 10-40 JUDAH MASSILLON Comment on above: Performed By: #### G FR, CMP #### [facility] [address] [place] [address] #### ANEU, CBC, ADIFF #### [place] [address] Bili Total 0.3 mg/dL Normal 0.2-1.0 JUDAH MASSILLON Comment on above: Result Comment: Use of this assay is not recommended for patients undergoing treatment with eltrombopag due to the potential for falsely elevated results. Performed By: #### G FR, CMP #### [facility] [address] [place] [id number] #### ANEU, CBC, ADIFF #### [place] [address] BUN/Creatinine Ratio 14 ratio Normal 7-27 JUDAH MASSILLON Comment on above: Performed By: #### G FR, CMP #### [facility] [address] [place] [id number] #### ANEU, CBC, ADIFF #### [place] [id number] Calcium [Mass/Vol] 8.9 mg/dL Normal 8.4-10.2 AULTMA N MASSILLON Comment on above: Performed By: #### G FR, CMP #### [facility] [address] [place] [id number] #### ANEU, CBC, ADIFF #### [place] [address] Chloride [Moles/Vol] 104 mmol/L Normal 98-107 JUDAH MASSILLON Comment on above: Performed By: #### G FR, CMP #### [facility] [address] [place] [address] #### ANEU, CBC, ADIFF #### [place] [id number] CO2 [Moles/Vol] 29 mmol/L Normal 22-29 JUDAH MASSILLON Comment on above: Performed By: #### G FR, CMP #### [facility] [address] [place] [address] #### ANEU, CBC, ADIFF #### [place] [address] Creatinine [Mass/Vol] 0.71 mg/dL Normal 0.55-1.02 JUDAH MASSILLON Comment on above: Result Comment: Test ing performed on Siemens Dimension EXL analyzer using a modified kinetic Catalina technique. Performed By: #### G FR, CMP #### [facility] [address] [place] [address] #### ANEU, CBC, ADIFF #### [place] [address] Electrolyte Balance 9.0 mEq/L Normal 4.0-15.0 AULTM AN MASSILLON Comment on above: Performed By: #### G FR, CMP #### [facility] [address] [place] [id number] #### ANEU, CBC, ADIFF #### [place] [id number] Globulin 3.5 G/dL Normal 1.5-3.8 JUDAH MASSILLON Comment on above: Performed By: #### G FR, CMP #### [facility] [address] [place] [id number] #### ANEU, CBC, ADIFF #### [facility] [address] [place] [address] Glucose [Mass/Vol] 91 mg/dL Normal 70-105 AULTMA N MASSILLON Comment on above: Performed By: #### G FR, CMP #### [facility] [address] [place], [place] [address] #### ANEU, CBC, ADIFF #### [facility] [address] [place] [address] Potassium [Moles/Vol] 3.9 mmol/L Normal 3.5-5.1 JUDAH MASSILLON Comment on above: Performed By: #### G FR, CMP #### [facility] [address] [place], [place] [address] #### ANEU, CBC, ADIFF #### [facility] [address] [place] [address] Sodium [Moles/Vol] 142 mmol/L Normal 136-145 AULTMA N MASSILLON Comment on above: Performed By: #### G FR, CMP #### [facility] [address] [place], [place] [address] #### ANEU, CBC, ADIFF #### [address] [address] Total Protein 6.9 G/dL Normal 6.4-8.2 JUDAH MASSILLON Comment on above: Performed By: #### G FR, CMP #### [facility] [address] [place], [place] [address] #### ANEU, CBC, ADIFF #### [facility] [address] [place] [address] Urea nitrogen [Mass/Vol] 10 mg/dL Normal 7-18 JUDAH MASSILLON Comment on above: Performed By: #### G FR, CMP #### [facility] [address] [place], [place] [address] #### ANEU, CBC, ADIFF #### [facility] [address] [place] [address] .Auto Diffon 06-06-2024 Basophil, Absolute 0.1 10 3/mcL Normal 0.0-0.3 ENMA MAN MASSILLON Comment on above: Performed By: #### A MAICOL, GFR, ADIFF, CBC, CMP #### [facility] [address] [place], [place] [address] Basophils/100 WBC (Bld) 0.8 % Normal 0.0-2.5 JUDAH MASSILLON Comment on above: Performed By: #### A MAICOL, GFR, ADIFF, CBC, CMP #### [facility] [address] [place], [place] [address] Eosinophil, Absolute 0.2 10 3/mcL Normal 0.0-0.7 JUDAH MASSILLON Comment on above: Performed By: #### A MAICOL, GFR, ADIFF, CBC, CMP #### [facility] [address] [place], [place] [address] Eosinophils/100 WBC (Bld) 2.5 % Normal 0.0-6.0 JUDAH MASSILLON Comment on above: Performed By: #### A MAICOL, GFR, ADIFF, CBC, CMP #### [facility] [address] [place], [place] [address] Lymphocyte, Absolute 4.2 10 3/mcL Normal 0.9-4.3 JUDAH MASSILLON Comment on above: Performed By: #### A MAICOL, GFR, ADIFF, CBC, CMP #### [facility] [address] [place], [place] [address] Lymphocytes/100 WBC (Bld) 44.3 % High 20.0-40.0 JUDAH MASSILLON Comment on above: Performed By: #### A MAICOL, GFR, ADIFF, CBC, CMP #### [facility] [address] [place], [place] [address] Monocyte, Absolute 0.8 10 3/mcL Normal 0.1-1.4 ENMA MAN MASSILLON Comment on above: Performed By: #### A MAICOL, GFR, ADIFF, CBC, CMP #### [facility] [address] [place], [place] [address] Monocytes/100 WBC (Bld) 8.2 % Normal 2.0-13.0 JUDAH MASSILLON Comment on above: Performed By: #### A MAICOL, GFR, ADIFF, CBC, CMP #### [facility] [address] [place], [place] [address] Neutrophils/100 WBC (Bld) 44.2 % Low 50.0-75.0 JUDAH SALINA Comment on above: Performed By: #### A MAICOL, GFR, ADIFF, CBC, CMP #### [facility] [address] [place], [place] [address] .GFRon 06-06-2024 GFR Non- 82 ml/min/1.73sqm Normal [facility] Comment on above: Result Comment: GFR Population mean for , Non- Americans Ages 20-29 = 116 mL/min/1.73 sq.m. Ages 30-39 = 107 mL/min/1.73 sq.m. Ages 40-49 = 99 mL/min/1.73 sq.m. Ages 50-59 = 93 mL/min/1.73 sq.m. Ages 60-69 = 85 mL/min/1.73 sq.m. Ages 70+ = 75 mL/min/1.73 sq.m. Chronic Kidney Disease: Less than 60 mL/min/1.73 square meters End Stage Renal Disease: Less than 15 mL/min/1.73 square meters Performed By: #### G FR, CMP #### [facility] [address] [place], [place] [address] #### ANEU, CBC, ADIFF #### [address] [address] GFR 100 ml/min/1.73sqm Normal JUDAH SALINA Comment on above: Result Comment: GFR Population mean for , Non- Americans Ages 20-29 = 116 mL/min/1.73 sq.m. Ages 30-39 = 107 mL/min/1.73 sq.m. Ages 40-49 = 99 mL/min/1.73 sq.m. Ages 50-59 = 93 mL/min/1.73 sq.m. Ages 60-69 = 85 mL/min/1.73 sq.m. Ages 70+ = 75 mL/min/1.73 sq.m. Chronic Kidney Disease: Less than 60 mL/min/1.73 square meters End Stage Renal Disease: Less than 15 mL/min/1.73 square meters Performed By: #### G FR, CMP #### [facility] [address] [place], [place] [address] #### ANEU, CBC, ADIFF #### [place] [address] .NEUABSon 06-06-2024 Neutrophil, Absolute 4.2 10 3/mcL Normal 2.3-8.1 JUDAH MASSILLON Comment on above: Performed By: #### G FR, CMP #### [facility] [address] [place], [place] [address] #### ANEU, CBC, ADIFF #### [place] [address] CBCon 06-06-2024 Erythrocyte distribution width (RBC) [Ratio] 14.7 % Normal 11.5-15.5 JUDAH MASSILLON Comment on above: Performed By: #### A MAICOL, GFR, ADIFF, CBC, CMP #### [facility] [address] [place], [place] [address] Hematocrit (Bld) [Volume fraction] 42.2 % Normal 34.0-46.0 JUDAH MASSILLON Comment on above: Performed By: #### A MAICOL, GFR, ADIFF, CBC, CMP #### [facility] [address] [place], [place] [address] Hgb 13.9 G/dL Normal 12.0-16.0 JUDAH MASSILLON Comment on above: Performed By: #### A MAICOL, GFR, ADIFF, CBC, CMP #### [facility] [address] [place], [place] [address] MCH (RBC) [Entitic mass] 31.6 pg Normal 27.0-33.0 JUDAH MASSILLON Comment on above: Performed By: #### A MAICOL, GFR, ADIFF, CBC, CMP #### [facility] [address] [place], [place] [address] MCHC 32.8 G/dL Normal 32.0-36.0 JUDAH MASSILLON Comment on above: Performed By: #### A MAICOL, GFR, ADIFF, CBC, CMP #### [facility] [address] [place], [place] [address] MCV (RBC) [Entitic vol] 96.2 fL Normal 80.0-99.0 JUDAH MASSILLON Comment on above: Performed By: #### A MAICOL, GFR, ADIFF, CBC, CMP #### [facility] [address] [place] [id number] Platelet 286 10 3/mcL Normal 150-450 JUDAH MASSILLON Comment on above: Performed By: #### A MAICOL, GFR, ADIFF, CBC, CMP #### [facility] [address] [place] [id number] Platelet mean volume (Bld) [Entitic vol] 9.0 fL Normal 6.6-10.5 JUDAH MASSILLON Comment on above: Performed By: #### A MAICOL, GFR, ADIFF, CBC, CMP #### [facility] [address] [place] [id number] RBC 4.39 10 6/mcL Normal 4.10-5.30 JUDAH MASSILLON Comment on above: Performed By: #### A MAICOL, GFR, ADIFF, CBC, CMP #### [facility] [address] [place] [id number] WBC 9.4 10 3/mcL Normal 4.5-10.8 JUDAH MASSILLON Comment on above: Performed By: #### A MAICOL, GFR, ADIFF, CBC, CMP #### [facility] [address] [place] [id number] CMPon 06-06-2024 Albumin Level 3.5 G/dL Normal 3.5-5.0 JUDAH MASSILLON Comment on above: Performed By: #### G FR, CMP #### [facility] [address] [place] [id number] #### ANEU, CBC, ADIFF #### [address] [address] Albumin/Globulin [Mass ratio] 1.0 {ratio} Low 1.1-2.5 JUDAH MASSILLON Comment on above: Performed By: #### G FR, CMP #### [facility] [address] [place] [id number] #### ANEU, CBC, ADIFF #### [place] [address] ALP [Catalytic activity/Vol] 84 U/L Normal 40-135 JUDAH MASSILLON Comment on above: Performed By: #### G FR, CMP #### [facility] [address] [place] [id number] #### ANEU, CBC, ADIFF #### [place] [id number] ALT [Catalytic activity/Vol] 44 U/L Normal 14-59 JUDAH MASSILLON Comment on above: Performed By: #### G FR, CMP #### [facility] [address] [place] [id number] #### ANEU, CBC, ADIFF #### [place] [address] AST [Catalytic activity/Vol] 18 U/L Normal 10-40 JUDAH MASSILLON Comment on above: Performed By: #### G FR, CMP #### [facility] [address] [place] [id number] #### ANEU, CBC, ADIFF #### [place] [address] Bili Total 0.3 mg/dL Normal 0.2-1.0 [facility] Comment on above: Result Comment: Use of this assay is not recommended for patients undergoing treatment with eltrombopag due to the potential for falsely elevated results. Performed By: #### G FR, CMP #### [facility] [address] [place] [id number] #### ANEU, CBC, ADIFF #### [place] [id number] BUN/Creatinine Ratio 16 ratio Normal 7-27 JUDAH MASSILLON Comment on above: Performed By: #### G FR, CMP #### [facility] [address] [place] [id number] #### ANEU, CBC, ADIFF #### [address] [address] Calcium [Mass/Vol] 8.8 mg/dL Normal 8.4-10.2 AULTMA N MASSILLON Comment on above: Performed By: #### G FR, CMP #### [facility] [address] [place], [place] [address] #### ANEU, CBC, ADIFF #### [place] [address] Chloride [Moles/Vol] 103 mmol/L Normal 98-107 JUDAH MASSILLON Comment on above: Performed By: #### G FR, CMP #### [facility] [address] [place] [address] #### ANEU, CBC, ADIFF #### [place] [id number] CO2 [Moles/Vol] 29 mmol/L Normal 22-29 JUDAH MASSILLON Comment on above: Performed By: #### G FR, CMP #### [facility] [address] [place] [address] #### ANEU, CBC, ADIFF #### [place] [id number] Creatinine [Mass/Vol] 0.75 mg/dL Normal 0.55-1.02 JUDAH MASSILLON Comment on above: Result Comment: Test ing performed on Siemens Dimension EXL analyzer using a modified kinetic Catalina technique. Performed By: #### G FR, CMP #### [facility] [address] [place] [id number] #### ANEU, CBC, ADIFF #### [place] [id number] Electrolyte Balance 8.0 mEq/L Normal 4.0-15.0 AULTM AN MASSILLON Comment on above: Performed By: #### G FR, CMP #### [facility] [address] [place] [id number] #### ANEU, CBC, ADIFF #### [facility] [address] [place], [place] [address] Globulin 3.6 G/dL Normal JUDAH MASSILLON Comment on above: Performed By: #### G FR, CMP #### [facility] [address] [place], [place] [address] #### ANEU, CBC, ADIFF #### [address] [address] Glucose [Mass/Vol] 84 mg/dL Normal 70-105 AULTMA N MASSILLON Comment on above: Performed By: #### G FR, CMP #### [facility] [address] [place], [place] [address] #### ANEU, CBC, ADIFF #### [address] [address] Potassium [Moles/Vol] 3.7 mmol/L Normal 3.5-5.1 JUDAH MASSILLON Comment on above: Performed By: #### G FR, CMP #### [facility] [address] [place] [id number] #### ANEU, CBC, ADIFF #### [address] [address] Sodium [Moles/Vol] 140 mmol/L Normal 136-145 AULTMA N MASSILLON Comment on above: Performed By: #### G FR, CMP #### [facility] [address] [place], [place] [address] #### ANEU, CBC, ADIFF #### [address] [address] Total Protein 7.1 G/dL Normal 6.4-8.2 JUDAH MASSILLON Comment on above: Performed By: #### G FR, CMP #### [facility] [address] [place], [place] [address] #### ANEU, CBC, ADIFF #### [address] [address] Urea nitrogen [Mass/Vol] 12 mg/dL Normal 7-18 JUDAH MASSILLON Comment on above: Performed By: #### G FR, CMP #### [facility] [address] [place] [id number] #### ANEU, CBC, ADIFF #### [address] [address] .Auto Diffon 03-14-2024 Basophil, Absolute 0.1 10 3/mcL Normal 0.0-0.3 ENMA MAN MASSILLON Comment on above: Performed By: #### G FR, CMP #### [facility] [address] [place], [place] [address] #### ANEU, CBC, ADIFF #### [address] [address] Basophils/100 WBC (Bld) 0.5 % Normal 0.0-2.5 JUDAH MASSILLON Comment on above: Performed By: #### G FR, CMP #### [facility] [address] [place], [place] [address] #### ANEU, CBC, ADIFF #### [address] [address] Eosinophil, Absolute 0.2 10 3/mcL Normal 0.0-0.7 JUDAH MASSILLON Comment on above: Performed By: #### G FR, CMP #### [facility] [address] [place], [place] [address] #### ANEU, CBC, ADIFF #### [address] [address] Eosinophils/100 WBC (Bld) 2.0 % Normal 0.0-6.0 JUDAH MASSILLON Comment on above: Performed By: #### G FR, CMP #### [facility] [address] [place] [id number] #### ANEU, CBC, ADIFF #### [facility] [address] [place] [address] Lymphocyte, Absolute 2.7 10 3/mcL Normal 0.9-4.3 JUDAH MASSILLON Comment on above: Performed By: #### G FR, CMP #### [facility] [address] [place], [place] [address] #### ANEU, CBC, ADIFF #### [address] [address] Lymphocytes/100 WBC (Bld) 23.2 % Normal 20.0-40.0 JUDAH MASSILLON Comment on above: Performed By: #### G FR, CMP #### [facility] [address] [place], [place] #### ANEU, CBC, ADIFF #### [facility] [address] [place] [address] Monocyte, Absolute 0.7 10 3/mcL Normal 0.1-1.4 ENMA MAN MASSILLON Comment on above: Performed By: #### G FR, CMP #### [facility] [address] [place], [place] [address] #### ANEU, CBC, ADIFF #### [facility] [address] [place] [address] Monocytes/100 WBC (Bld) 5.8 % Normal 2.0-13.0 JUDAH MASSILLON Comment on above: Performed By: #### G FR, CMP #### [facility] [address] [place], [place] [address] #### ANEU, CBC, ADIFF #### [facility] [address] [place] [address] Neutrophils/100 WBC (Bld) 68.5 % Normal 50.0-75.0 JUDAH MASSILLON Comment on above: Performed By: #### G FR, CMP #### [facility] [address] [place], [place] [address] #### ANEU, CBC, ADIFF #### [facility] [address] [place] [address] .GFRon 03-14-2024 GFR >60 Normal JUDAH MASSILLON Comment on above: Result Comment: GFR Population mean for , Non- Americans Ages 20-29 = 116 mL/min/1.73 sq.m. Ages 30-39 = 107 mL/min/1.73 sq.m. Ages 40-49 = 99 mL/min/1.73 sq.m. Ages 50-59 = 93 mL/min/1.73 sq.m. Ages 60-69 = 85 mL/min/1.73 sq.m. Ages 70+ = 75 mL/min/1.73 sq.m. Chronic Kidney Disease: Less than 60 mL/min/1.73 square meters End Stage Renal Disease: Less than 15 mL/min/1.73 square meters Performed By: #### G FR, CMP #### [facility] [address] [place], [place] #### ANEU, CBC, ADIFF #### [place] [address] GFR Non- >60 Normal [facility] Comment on above: Result Comment: GFR Population mean for , Non- Americans Ages 20-29 = 116 mL/min/1.73 sq.m. Ages 30-39 = 107 mL/min/1.73 sq.m. Ages 40-49 = 99 mL/min/1.73 sq.m. Ages 50-59 = 93 mL/min/1.73 sq.m. Ages 60-69 = 85 mL/min/1.73 sq.m. Ages 70+ = 75 mL/min/1.73 sq.m. Chronic Kidney Disease: Less than 60 mL/min/1.73 square meters End Stage Renal Disease: Less than 15 mL/min/1.73 square meters Performed By: #### G FR, CMP #### [facility] [address] [place], [place] #### ANEU, CBC, ADIFF #### [place] [address] .NEUABSon 03-14-2024 Neutrophil, Absolute 8.0 10 3/mcL Normal 2.3-8.1 JUDAH MASSILLON Comment on above: Performed By: #### G FR, CMP #### [facility] [address] [place], [place] #### ANEU, CBC, ADIFF #### [place] [address] CBCon 03-14-2024 Erythrocyte distribution width (RBC) [Ratio] 14.9 % Normal 11.5-15.5 JUDAH MASSILLON Comment on above: Performed By: #### G FR, CMP #### [facility] [address] [place] [id number] #### ANEU, CBC, ADIFF #### [place] [address] Hematocrit (Bld) [Volume fraction] 41.6 % Normal 34.0-46.0 [facility] Comment on above: Performed By: #### G FR, CMP #### [facility] [address] [place] [id number] #### ANEU, CBC, ADIFF #### [place] [address] Hgb 14.0 G/dL Normal 12.0-16.0 [facility] Comment on above: Performed By: #### G FR, CMP #### [facility] [address] [place] [address] #### ANEU, CBC, ADIFF #### [place] [address] MCH (RBC) [Entitic mass] 31.8 pg Normal 27.0-33.0 [facility] Comment on above: Performed By: #### G FR, CMP #### [facility] [address] [place] [address] #### ANEU, CBC, ADIFF #### [place] [address] MCHC 33.7 G/dL Normal 32.0-36.0 [facility] Comment on above: Performed By: #### G FR, CMP #### [facility] [address] [place] [address] #### ANEU, CBC, ADIFF #### [place] [address] MCV (RBC) [Entitic vol] 94.4 fL Normal 80.0-99.0 [facility] Comment on above: Performed By: #### G FR, CMP #### [facility] [address] [place] [id number] #### ANEU, CBC, ADIFF #### [place] [address] Platelet 251 10 3/mcL Normal 150-450 [facility] Comment on above: Performed By: #### G FR, CMP #### [facility] [address] [place], [place] #### ANEU, CBC, ADIFF #### [place] [address] Platelet mean volume (Bld) [Entitic vol] 8.9 fL Normal 6.6-10.5 JUDAH MASSILLON Comment on above: Performed By: #### G FR, CMP #### [facility] [address] [place] [id number] #### ANEU, CBC, ADIFF #### [place] [address] RBC 4.41 10 6/mcL Normal 4.10-5.30 JUDAH MASSILLON Comment on above: Performed By: #### G FR, CMP #### [facility] [address] [place] [id number] #### ANEU, CBC, ADIFF #### [place] [address] WBC 11.7 10 3/mcL High 4.5-10.8 JUDAH MASSILLON Comment on above: Performed By: #### G FR, CMP #### [facility] [address] [place] [id number] #### ANEU, CBC, ADIFF #### [place] [address] CMPon 03-14-2024 Albumin Level 3.5 G/dL Normal 3.2-4.8 JUDAH MASSILLON Comment on above: Performed By: #### G FR, CMP #### [facility] [address] [place] [id number] #### ANEU, CBC, ADIFF #### [place] [address] Albumin/Globulin [Mass ratio] 1.2 {ratio} Normal 0.9-1.6 JUDAH MASSILLON Comment on above: Performed By: #### G FR, CMP #### [facility] [address] [place] [id number] #### ANEU, CBC, ADIFF #### [place] [address] ALP [Catalytic activity/Vol] 82 U/L Normal 38-126 JUDAH MASSILLON Comment on above: Performed By: #### G FR, CMP #### [facility] [address] [place] [id number] #### ANEU, CBC, ADIFF #### [place] [address] ALT [Catalytic activity/Vol] 25 U/L Normal 10-49 JUDAH MASSILLON Comment on above: Performed By: #### G FR, CMP #### [facility] [address] [place] [address] #### ANEU, CBC, ADIFF #### [place] [address] AST [Catalytic activity/Vol] 19 U/L Normal 8-34 JUDAH MASSILLON Comment on above: Performed By: #### G FR, CMP #### [facility] [address] [place] [address] #### ANEU, CBC, ADIFF #### [place] [address] Bili Total 0.80 mg/dL Normal 0.20-1.20 [facility] Comment on above: Result Comment: Use of this assay is not recommended for patients undergoing treatment with eltrombopag due to the potential for falsely elevated results. Performed By: #### G FR, CMP #### [facility] [address] [place] [id number] #### ANEU, CBC, ADIFF #### [place] [address] BUN/Creatinine Ratio 20.3 ratio Normal 10.0-22.0 [facility] Comment on above: Performed By: #### G FR, CMP #### [facility] [address] [place] [id number] #### ANEU, CBC, ADIFF #### [place] [address] Calcium [Mass/Vol] 9.1 mg/dL Normal 8.7-10.4 AULTMA N MASSILLON Comment on above: Performed By: #### G FR, CMP #### [facility] [address] [place] [id number] #### ANEU, CBC, ADIFF #### [place] [address] Chloride [Moles/Vol] 107 mmol/L Normal 98-110 JUDAH MASSILLON Comment on above: Performed By: #### G FR, CMP #### [facility] [address] [place] [id number] #### ANEU, CBC, ADIFF #### [place] [address] CO2 [Moles/Vol] 30 mmol/L Normal 22-32 JUDAH MASSILLON Comment on above: Performed By: #### G FR, CMP #### [facility] [address] [place] [address] #### ANEU, CBC, ADIFF #### [place] [address] Creatinine [Mass/Vol] 0.74 mg/dL Normal 0.50-1.20 JUDAH MASSILLON Comment on above: Result Comment: Test ing performed on Vinfolio analyzer using enzymatic creatinine methodology. Performed By: #### G FR, CMP #### [facility] [address] [place] [address] #### ANEU, CBC, ADIFF #### [place] [address] Electrolyte Balance 6.0 mEq/L Normal 4.0-15.0 AULTM AN MASSILLON Comment on above: Performed By: #### G FR, CMP #### [facility] [address] [place] [id number] #### ANEU, CBC, ADIFF #### [place] [id number] Globulin 3.0 G/dL Normal 1.5-3.8 JUDAH MASSILLON Comment on above: Performed By: #### G FR, CMP #### [facility] [address] [place] [id number] #### ANEU, CBC, ADIFF #### [facility] [address] [place] [address] Glucose [Mass/Vol] 96 mg/dL Normal 70-110 AULTMA N MASSILLON Comment on above: Performed By: #### G FR, CMP #### [facility] [address] [place], [place] [address] #### ANEU, CBC, ADIFF #### [facility] [address] [place] [address] Potassium [Moles/Vol] 4.0 mmol/L Normal 3.5-5.0 JUDAH MASSILLON Comment on above: Performed By: #### G FR, CMP #### [facility] [address] [place], [place] [address] #### ANEU, CBC, ADIFF #### [facility] [address] [place] [address] Sodium [Moles/Vol] 143 mmol/L Normal 136-145 AULTMA N MASSILLON Comment on above: Performed By: #### G FR, CMP #### [facility] [address] [place], [place] [address] #### ANEU, CBC, ADIFF #### [address] [address] Total Protein 6.5 G/dL Normal 5.7-8.2 JUDAH MASSILLON Comment on above: Performed By: #### G FR, CMP #### [facility] [address] [place] [id number] #### ANEU, CBC, ADIFF #### [facility] [address] [place] [address] Urea nitrogen [Mass/Vol] 15.0 mg/dL Normal 8.0-22.0 JUDAH MASSILLON Comment on above: Performed By: #### G FR, CMP #### [facility] [address] [place], [place] [address] #### ANEU, CBC, ADIFF #### [place] [id number] .Auto Diffon 10-17-2023 Basophil, Absolute 0.1 10 3/mcL Normal 0.0-0.3 [facility] ([place]) Comment on above: Performed By: #### B ILT, HBSAB, ROMEL, RINA, HCV1, PROT, AHBCOT, CCP, HBSAG #### [address] [address] Basophils/100 WBC (Bld) 0.7 % Normal 0.0-2.5 [facility] ([place]) Comment on above: Performed By: #### B ILT, HBSAB, ROMEL, RINA, HCV1, PROT, AHBCOT, CCP, HBSAG #### [address] [address] Eosinophil, Absolute 0.3 10 3/mcL Normal 0.0-0.7 [facility] ([place]) Comment on above: Performed By: #### B ILT, HBSAB, ROMEL, RINA, HCV1, PROT, AHBCOT, CCP, HBSAG #### [address] [address] Eosinophils/100 WBC (Bld) 3.6 % Normal 0.0-6.0 [facility] ([place]) Comment on above: Performed By: #### B ILT, HBSAB, ROMEL, RINA, HCV1, PROT, AHBCOT, CCP, HBSAG #### [address] [address] Lymphocyte, Absolute 3.5 10 3/mcL Normal 0.9-4.3 [facility] ([place]) Comment on above: Performed By: #### B ILT, HBSAB, ROMEL, RINA, HCV1, PROT, AHBCOT, CCP, HBSAG #### [address] [address] Lymphocytes/100 WBC (Bld) 42.3 % High 20.0-40.0 [facility] ([place] Comment on above: Performed By: #### B ILT, HBSAB, ROMEL, RINA, HCV1, PROT, AHBCOT, CCP, HBSAG #### [address] [address] Monocyte, Absolute 0.8 10 3/mcL Normal 0.1-1.4 [facility] ([place]) Comment on above: Performed By: #### B ILT, HBSAB, ROMEL, RINA, HCV1, PROT, AHBCOT, CCP, HBSAG #### [address] [address] Monocytes/100 WBC (Bld) 9.0 % Normal 2.0-13.0 [facility] ([place] Comment on above: Performed By: #### B ILT, HBSAB, ROMEL, RINA, HCV1, PROT, AHBCOT, CCP, HBSAG #### [address] [address] Neutrophils/100 WBC (Bld) 44.4 % Low 50.0-75.0 [facility] ([place]) Comment on above: Performed By: #### B ILT, HBSAB, ROMEL, RINA, HCV1, PROT, AHBCOT, CCP, HBSAG #### [address] [address] .GFRon 10-17-2023 GFR >60 Normal [facility] ([place]) Comment on above: Result Comment: GFR Population mean for , Non- Americans Ages 20-29 = 116 mL/min/1.73 sq.m. Ages 30-39 = 107 mL/min/1.73 sq.m. Ages 40-49 = 99 mL/min/1.73 sq.m. Ages 50-59 = 93 mL/min/1.73 sq.m. Ages 60-69 = 85 mL/min/1.73 sq.m. Ages 70+ = 75 mL/min/1.73 sq.m. Chronic Kidney Disease: Less than 60 mL/min/1.73 square meters End Stage Renal Disease: Less than 15 mL/min/1.73 square meters Performed By: #### B ILT, HBSAB, ROMEL, RINA, HCV1, PROT, AHBCOT, CCP, HBSAG #### [address] [address] GFR Non- >60 Normal [facility] ([place] Comment on above: Result Comment: GFR Population mean for , Non- Americans Ages 20-29 = 116 mL/min/1.73 sq.m. Ages 30-39 = 107 mL/min/1.73 sq.m. Ages 40-49 = 99 mL/min/1.73 sq.m. Ages 50-59 = 93 mL/min/1.73 sq.m. Ages 60-69 = 85 mL/min/1.73 sq.m. Ages 70+ = 75 mL/min/1.73 sq.m. Chronic Kidney Disease: Less than 60 mL/min/1.73 square meters End Stage Renal Disease: Less than 15 mL/min/1.73 square meters Performed By: #### B ILT, HBSAB, ROMEL, RINA, HCV1, PROT, AHBCOT, CCP, HBSAG #### [place] [address] .NEUABSon 10-17-2023 Neutrophil, Absolute 3.7 10 3/mcL Normal 2.3-8.1 [facility] ([place]) Comment on above: Performed By: #### B ILT, HBSAB, ROMEL, RINA, HCV1, PROT, AHBCOT, CCP, HBSAG #### [place] [address] CBCon 10-17-2023 Erythrocyte distribution width (RBC) [Ratio] 15.0 % Normal 11.5-15.5 [facility] ([place]) Comment on above: Performed By: #### B ILT, HBSAB, ROMEL, RINA, HCV1, PROT, AHBCOT, CCP, HBSAG #### [place] [address] Hematocrit (Bld) [Volume fraction] 41.0 % Normal 34.0-46.0 [facility] ([place] Comment on above: Performed By: #### B ILT, HBSAB, ROMEL, RINA, HCV1, PROT, AHBCOT, CCP, HBSAG #### [place] [address] Hgb 13.7 G/dL Normal 12.0-16.0 [facility] ([place] Comment on above: Performed By: #### B ILT, HBSAB, ROMEL, RINA, HCV1, PROT, AHBCOT, CCP, HBSAG #### [place] [address] MCH (RBC) [Entitic mass] 30.5 pg Normal 27.0-33.0 [facility] ([place]) Comment on above: Performed By: #### B ILT, HBSAB, ROMEL, RINA, HCV1, PROT, AHBCOT, CCP, HBSAG #### [place] [address] MCHC 33.5 G/dL Normal 32.0-36.0 [facility] ([place] Comment on above: Performed By: #### B ILT, HBSAB, ROMEL, RINA, HCV1, PROT, AHBCOT, CCP, HBSAG #### [place] [address] MCV (RBC) [Entitic vol] 91.3 fL Normal 80.0-99.0 [facility] ([place] Comment on above: Performed By: #### B ILT, HBSAB, ROMEL, RINA, HCV1, PROT, AHBCOT, CCP, HBSAG #### [place] [address] Platelet 242 10 3/mcL Normal 150-450 [facility] ([place] Comment on above: Performed By: #### B ILT, HBSAB, ROMEL, RINA, HCV1, PROT, AHBCOT, CCP, HBSAG #### [place] [address] Platelet mean volume (Bld) [Entitic vol] 9.1 fL Normal 6.6-10.5 [facility] ([place] Comment on above: Performed By: #### B ILT, HBSAB, ROMEL, RINA, HCV1, PROT, AHBCOT, CCP, HBSAG #### [place] [address] RBC 4.49 10 6/mcL Normal 4.10-5.30 [facility] ([place] Comment on above: Performed By: #### B ILT, HBSAB, ROMEL, RINA, HCV1, PROT, AHBCOT, CCP, HBSAG #### [place] [address] WBC 8.4 10 3/mcL Normal 4.5-10.8 [facility] ([place] Comment on above: Performed By: #### B ILT, HBSAB, ROMEL, RINA, HCV1, PROT, AHBCOT, CCP, HBSAG #### [address] [address] CMPon 10-17-2023 Albumin Level 3.4 G/dL Normal 3.2-4.8 [facility] ([place] Comment on above: Performed By: #### B ILT, HBSAB, ROMEL, RINA, HCV1, PROT, AHBCOT, CCP, HBSAG #### [place] [id number] Albumin/Globulin [Mass ratio] 1.3 {ratio} Normal 0.9-1.6 [facility] ([place] Comment on above: Performed By: #### B ILT, HBSAB, ROMEL, RINA, HCV1, PROT, AHBCOT, CCP, HBSAG #### [address] [address] ALP [Catalytic activity/Vol] 72 U/L Normal 38-126 [facility] ([place] Comment on above: Performed By: #### B ILT, HBSAB, ROMEL, RINA, HCV1, PROT, AHBCOT, CCP, HBSAG #### [address] [address] ALT [Catalytic activity/Vol] 20 U/L Normal 10-49 [facility] ([place] Comment on above: Performed By: #### B ILT, HBSAB, ROMEL, RINA, HCV1, PROT, AHBCOT, CCP, HBSAG #### [address] [address] AST [Catalytic activity/Vol] 15 U/L Normal 8-34 [facility] ([place] Comment on above: Performed By: #### B ILT, HBSAB, ROMEL, RINA, HCV1, PROT, AHBCOT, CCP, HBSAG #### [place] [id number] Bili Total 0.50 mg/dL Normal 0.20-1.20 [facility] ([place] Comment on above: Result Comment: Use of this assay is not recommended for patients undergoing treatment with eltrombopag due to the potential for falsely elevated results. Performed By: #### B ILT, HBSAB, ROMEL, RINA, HCV1, PROT, AHBCOT, CCP, HBSAG #### [place] [id number] BUN/Creatinine Ratio 14.7 ratio Normal 10.0-22.0 [facility] ([place] Comment on above: Performed By: #### B ILT, HBSAB, ROMEL, RINA, HCV1, PROT, AHBCOT, CCP, HBSAG #### [place] [id number] Calcium [Mass/Vol] 8.6 mg/dL Low 8.7-10.4 [facility] ([place]) Comment on above: Performed By: #### B ILT, HBSAB, ROMEL, RINA, HCV1, PROT, AHBCOT, CCP, HBSAG #### [place] [id number] Chloride [Moles/Vol] 108 mmol/L Normal 98-110 [facility] ([place] Comment on above: Performed By: #### B ILT, HBSAB, ROMEL, RINA, HCV1, PROT, AHBCOT, CCP, HBSAG #### [place] [id number] CO2 [Moles/Vol] 27 mmol/L Normal 22-32 [facility] ([place] Comment on above: Performed By: #### B ILT, HBSAB, ROMEL, RINA, HCV1, PROT, AHBCOT, CCP, HBSAG #### [place] [id number] Creatinine [Mass/Vol] 0.68 mg/dL Normal 0.50-1.20 [facility] ([place] Comment on above: Performed By: #### B ILT, HBSAB, ROMEL, RINA, HCV1, PROT, AHBCOT, CCP, HBSAG #### [place] [id number] Electrolyte Balance 7.0 mEq/L Normal 4.0-15.0 [facility] ([place]) Comment on above: Performed By: #### B ILT, HBSAB, ROMEL, RINA, HCV1, PROT, AHBCOT, CCP, HBSAG #### [address] [address] Globulin 2.7 G/dL Normal 1.5-3.8 [facility] ([place] Comment on above: Performed By: #### B ILT, HBSAB, ROMEL, RINA, HCV1, PROT, AHBCOT, CCP, HBSAG #### [address] [address] Glucose [Mass/Vol] 96 mg/dL Normal 70-110 [facility] ([place]) Comment on above: Performed By: #### B ILT, HBSAB, ROMEL, RINA, HCV1, PROT, AHBCOT, CCP, HBSAG #### [address] [address] Potassium [Moles/Vol] 4.0 mmol/L Normal 3.5-5.0 [facility] ([place]) Comment on above: Performed By: #### B ILT, HBSAB, ROMEL, RINA, HCV1, PROT, AHBCOT, CCP, HBSAG #### [address] [address] Sodium [Moles/Vol] 142 mmol/L Normal 136-145 [facility] ([place]) Comment on above: Performed By: #### B ILT, HBSAB, ROMEL, RINA, HCV1, PROT, AHBCOT, CCP, HBSAG #### [address] [address] Total Protein 6.1 G/dL Normal 5.7-8.2 [facility] ([place]) Comment on above: Result Comment: No te - New Reference Range in effect 19 Performed By: #### B ILT, HBSAB, ROMEL, RINA, HCV1, PROT, AHBCOT, CCP, HBSAG #### [address] [address] Urea nitrogen [Mass/Vol] 10.0 mg/dL Normal 8.0-22.0 [facility] ([place]) Comment on above: Performed By: #### B ILT, HBSAB, ROMEL, RINA, HCV1, PROT, AHBCOT, CCP, HBSAG #### [place] [address] CAIONon 10-06-2023 Calcium Ionized 1.14 mmol/L Normal 1.12-1.32 [facility] ([place]) Comment on above: Performed By: #### B ILT, HBSAB, ROMEL, RINA, HCV1, PROT, AHBCOT, CCP, HBSAG #### [place] [address] PTHon 10-06-2023 PTH, Intact 104.3 pg/mL High 18.5-88.0 [facility] ([place]) Comment on above: Performed By: #### B ILT, HBSAB, ROMEL, RINA, HCV1, PROT, AHBCOT, CCP, HBSAG #### [place] [address] TSHon 10-06-2023 TSH 2.814 mIU/mL Normal 0.550-4.780 [facility] ([place]) Comment on above: Result Comment: No te - New Reference Range in effect 19 Performed By: #### B ILT, HBSAB, ROMEL, RINA, HCV1, PROT, AHBCOT, CCP, HBSAG #### [place] [address] VIDHon 10-06-2023 Vit. D 25-Hydroxy 10.4 ng/mL Normal [facility] ([place]) Comment on above: Result Comment: Inte rpretive Values Based on Total 25(OH)D: Severe Deficiency <20 ng/mL Mild to Moderate Deficiency 20-30 ng/mL Optimum Levels 30-100 ng/mL Toxicity Possible >100 ng/mL Performed By: #### B ILT, HBSAB, ROMEL, RINA, HCV1, PROT, AHBCOT, CCP, HBSAG #### [place] [address] .GFRon 09-20-2023 GFR Non- >60 Normal [facility] ([place]) Comment on above: Result Comment: GFR Population mean for , Non- Americans Ages 20-29 = 116 mL/min/1.73 sq.m. Ages 30-39 = 107 mL/min/1.73 sq.m. Ages 40-49 = 99 mL/min/1.73 sq.m. Ages 50-59 = 93 mL/min/1.73 sq.m. Ages 60-69 = 85 mL/min/1.73 sq.m. Ages 70+ = 75 mL/min/1.73 sq.m. Chronic Kidney Disease: Less than 60 mL/min/1.73 square meters End Stage Renal Disease: Less than 15 mL/min/1.73 square meters Performed By: #### B ILT, HBSAB, ROMEL, RINA, HCV1, PROT, AHBCOT, CCP, HBSAG #### [address] [address] GFR >60 Normal [facility] ([place]) Comment on above: Result Comment: GFR Population mean for , Non- Americans Ages 20-29 = 116 mL/min/1.73 sq.m. Ages 30-39 = 107 mL/min/1.73 sq.m. Ages 40-49 = 99 mL/min/1.73 sq.m. Ages 50-59 = 93 mL/min/1.73 sq.m. Ages 60-69 = 85 mL/min/1.73 sq.m. Ages 70+ = 75 mL/min/1.73 sq.m. Chronic Kidney Disease: Less than 60 mL/min/1.73 square meters End Stage Renal Disease: Less than 15 mL/min/1.73 square meters Performed By: #### B ILT, HBSAB, ROMEL, RINA, HCV1, PROT, AHBCOT, CCP, HBSAG #### [address] [address] [facility] 09-20-2023 Albumin Level 3.4 G/dL Normal 3.2-4.8 [facility] ([place]) Comment on above: Performed By: #### B ILT, HBSAB, ROMEL, RINA, HCV1, PROT, AHBCOT, CCP, HBSAG #### [address] [address] Albumin/Globulin [Mass ratio] 1.1 {ratio} Normal 0.9-1.6 [facility] ([place]) Comment on above: Performed By: #### B ILT, HBSAB, ROMEL, RINA, HCV1, PROT, AHBCOT, CCP, HBSAG #### [place] [address] ALP [Catalytic activity/Vol] 77 U/L Normal 38-126 [facility] ([place] Comment on above: Performed By: #### B ILT, HBSAB, ROMEL, RINA, HCV1, PROT, AHBCOT, CCP, HBSAG #### [place] [id number] ALT [Catalytic activity/Vol] 44 U/L Normal 10-49 [facility] ([place] Comment on above: Performed By: #### B ILT, HBSAB, ROMEL, RINA, HCV1, PROT, AHBCOT, CCP, HBSAG #### [place] [address] AST [Catalytic activity/Vol] 38 U/L High 8-34 [facility] ([place] Comment on above: Performed By: #### B ILT, HBSAB, ROMEL, RINA, HCV1, PROT, AHBCOT, CCP, HBSAG #### [place] [id number] Bili Total 0.40 mg/dL Normal 0.20-1.20 [facility] ([place]) Comment on above: Result Comment: Use of this assay is not recommended for patients undergoing treatment with eltrombopag due to the potential for falsely elevated results. Performed By: #### B ILT, HBSAB, ROMEL, RINA, HCV1, PROT, AHBCOT, CCP, HBSAG #### [place] [id number] BUN/Creatinine Ratio 21.5 ratio Normal 10.0-22.0 [facility] ([place] Comment on above: Performed By: #### B ILT, HBSAB, ROMEL, RINA, HCV1, PROT, AHBCOT, CCP, HBSAG #### [place] [id number] Calcium [Mass/Vol] 8.5 mg/dL Low 8.7-10.4 [facility] ([place]) Comment on above: Performed By: #### B ILT, HBSAB, ROMEL, RINA, HCV1, PROT, AHBCOT, CCP, HBSAG #### [place] [id number] Chloride [Moles/Vol] 108 mmol/L Normal 98-110 [facility] ([place] Comment on above: Performed By: #### B ILT, HBSAB, ROMEL, RINA, HCV1, PROT, AHBCOT, CCP, HBSAG #### [address] [address] CO2 [Moles/Vol] 28 mmol/L Normal 22-32 [facility] ([place] Comment on above: Performed By: #### B ILT, HBSAB, ROMEL, RINA, HCV1, PROT, AHBCOT, CCP, HBSAG #### [place] [id number] Creatinine [Mass/Vol] 0.65 mg/dL Normal 0.50-1.20 [facility] ([place] Comment on above: Performed By: #### B ILT, HBSAB, ROMEL, RINA, HCV1, PROT, AHBCOT, CCP, HBSAG #### [place] [id number] Electrolyte Balance 4.0 mEq/L Normal 4.0-15.0 [facility] ([place]) Comment on above: Performed By: #### B ILT, HBSAB, ROMEL, RINA, HCV1, PROT, AHBCOT, CCP, HBSAG #### [place] [id number] Globulin 3.0 G/dL Normal 1.5-3.8 [facility] ([place] Comment on above: Performed By: #### B ILT, HBSAB, ROMEL, RINA, HCV1, PROT, AHBCOT, CCP, HBSAG #### [place] [id number] Glucose [Mass/Vol] 109 mg/dL Normal 70-110 [facility] ([place]) Comment on above: Performed By: #### B ILT, HBSAB, ROMEL, RINA, HCV1, PROT, AHBCOT, CCP, HBSAG #### [place] [id number] Potassium [Moles/Vol] 3.8 mmol/L Normal 3.5-5.0 [facility] ([place] Comment on above: Performed By: #### B ILT, HBSAB, ROMEL, RINA, HCV1, PROT, AHBCOT, CCP, HBSAG #### [address] [address] Sodium [Moles/Vol] 140 mmol/L Normal 136-145 [facility] ([place] Comment on above: Performed By: #### B ILT, HBSAB, ROMEL, RINA, HCV1, PROT, AHBCOT, CCP, HBSAG #### [address] [id number] Total Protein 6.4 G/dL Normal 5.7-8.2 [facility] ([place] Comment on above: Result Comment: No te - New Reference Range in effect 19 Performed By: #### B ILT, HBSAB, ROMEL, RINA, HCV1, PROT, AHBCOT, CCP, HBSAG #### [address] [address] Urea nitrogen [Mass/Vol] 14.0 mg/dL Normal 8.0-22.0 [facility] ([place] Comment on above: Performed By: #### B ILT, HBSAB, ROMEL, RINA, HCV1, PROT, AHBCOT, CCP, HBSAG #### [address] [address] LIPIDon 09-20-2023 Cholesterol [Mass/Vol] 179 mg/dL Normal 50-199 [facility] ([place] Comment on above: Result Comment: Chol esterol Reference Interval: Less than 200 Desirable 200-239 Borderline high risk 240 and above High risk Performed By: #### B ILT, HBSAB, ROMEL, RINA, HCV1, PROT, AHBCOT, CCP, HBSAG #### [address] [id number] Cholesterol in HDL [Mass/Vol] 48 mg/dL Normal 40-59 [facility] ([place] Comment on above: Performed By: #### B ILT, HBSAB, ROMEL, RINA, HCV1, PROT, AHBCOT, CCP, HBSAG #### [address] [address] Cholesterol in LDL [Mass/Vol] 111 mg/dL Normal 0-129 [facility] ([place] Comment on above: Performed By: #### B ILT, HBSAB, ROMEL, RINA, HCV1, PROT, AHBCOT, CCP, HBSAG #### [address] [address] Triglyceride [Mass/Vol] 98 mg/dL Normal 3-149 [facility] ([place] Comment on above: Performed By: #### B ILT, HBSAB, ROMEL, RINA, HCV1, PROT, AHBCOT, CCP, HBSAG #### [address] [address] Absolute lymphocyte countOrd ered By: Jaime Hansen on 07-29-2023 Lymphocytes Auto (Unsp spec) [#/Vol] 3.17 10*3/uL 0.83-4.[address] [facility] Automated lymphocyte count a s percentage of total leukocytesOrdered By: Jaime Hansen on 07-29-2023 Lymphocytes/100 WBC Auto (Unsp spec) 41.2 % 19-[address] [facility] Basophil percentageOrdered B y: Jaime Hansen on 07-29-2023 Basophils/100 WBC (Bld) 0.6 % 0-[address] [facility] Bilirubin [Mass/Vol] 0.20 mg/dL 0.20-1.[address] [facility] Comment on above: For patients on eltr ombopag therapy, use of Dimension [place] TBIL is not recommended. Chloride [Moles/Vol] 106 mmol/L 98-[address] [facility] Eosinophils/100 WBC (Bld) 4.0 % 0-[address] [facility] Glucose [Mass/Vol] 95 mg/dL 74-106 [facility] Hemoglobin (Bld) [Mass/Vol] 13.7 g/dL 12.0-15.[address] [facility] Monocytes/100 WBC (Bld) 11.0 % 0-[address] [facility] Neutrophils (Bld) [#/Vol] 3.3 10*3/uL 2.0-7.[address] [facility] Neutrophils/100 WBC (Bld) 42.9 % 47-[address] [facility] Potassium [Moles/Vol] 3.6 mmol/L 3.5-5.[address] [facility] Protein [Mass/Vol] 6.8 g/dL 6.4-8.2 [facility] Sodium [Moles/Vol] 140 mmol/L 136-145 [facility] WBC (Bld) [#/Vol] 7.7 10*3/uL 4.4-11.0 [facility] Determination of erythrocyte mean corpuscular volume (MCV)Ordered By: Jaime Hansen on 07-29-2023 MCV (RBC) [Entitic vol] 92.1 fL 81-[address] [facility] Erythrocyte distribution wid th ratioOrdered By: [facility] Jade on 07-29-2023 Erythrocyte distribution width (RBC) [Ratio] 13.8 % 11.6-14.[address] [facility] Erythrocyte distribution wid th standard deviationOrdered By: [facility] Jade on 07-29-2023 Erythrocyte distribution width (RBC) [Entitic vol] 46.5 fL 35.1-43.[address] [facility] Hematocrit Auto (Bld) [Volum e fraction]Ordered By: Jaime Hansen on 07-29-2023 Hematocrit (Bld) [Volume fraction] 43.1 % 37-[address] [facility] Immature granulocytes/100 WB C Auto (Bld)Ordered By: Jaime Hansen on 07-29-2023 Immature granulocytes/100 WBC (Bld) 0.300 % 0.0-0.[address] [facility] Comment on above: IG% - Immature Granu locytes (promyelocytes, myelocytes and metamyelocytes) > 1% indicates that a LEFT SHIFT is Present. Laboratory - Chemistry and C hemistry - challengeOrdered By: Jaime Hansen on 07-29-2023 Albumin/Globulin [Mass ratio] 1.0 {ratio} 0.9-2.[address] [facility] ALP [Catalytic activity/Vol] 71 U/L 45-[address] [facility] ALT [Catalytic activity/Vol] 28 U/L 13-[address] [facility] CO2 [Moles/Vol] 30.0 mmol/L 21.0-32.[address] [facility] Globulin (S) [Mass/Vol] 3.4 g/dL 2.2-4.2 [facility] Urea nitrogen/Creatinine [Mass ratio] 21.0 mg/mg 10-[address] [facility] Laboratory - Hematology and Cell countsOrdered By: Jaime Hansen on 07-29-2023 MCH (RBC) [Entitic mass] 29.3 pg 27.0-32.[address] [facility] MCHC (RBC) [Mass/Vol] 31.8 g/dL 32-[address] [facility] Nucleated RBC/100 WBC (Bld) [Ratio] 0 % 0-[address] [facility] Platelet mean volume (Bld) [Entitic vol] 10.6 fL 6.2-12.[address] [facility] Platelets (Bld) [#/Vol] 258 10*3/uL 150-[address] [facility] No Panel InformationOrdered By: Jaime Hansen on 07-29-2023 Estimated GFR (MDRD) Amer 145 mL/min >[address] [facility] Comment on above: GFR Calc Estimated GFR (MDRD) Non-Af Amer 120 mL/min >[address] [facility] Comment on above: Non- GFR Calc RBC Auto (Bld) [#/Vol]Ordere d By: Jaime Hansen on 07-29-2023 RBC (Bld) [#/Vol] 4.68 10*6/uL 4.2-5.4 [facility] Serum or plasma calcium meg urement (mass/volume)Ordered By: Jaime Hansen on 07-29-2023 Calcium [Mass/Vol] 8.5 mg/dL 8.5-10.1 [facility] Serum or plasma creatinine m easurement (mass/volume)Ordered By: Jaime Hansen on 07-29-2023 Creatinine [Mass/Vol] 0.57 mg/dL 0.55-1.[address] [facility] Comment on above: The validity of the calculated GFR & GFRAA in patients over 70 years has not been determined. Clinical correlation is essential. Serum or plasma urea nitroge n measurement (mass/volume)Ordered By: Jaime Hansen on 07-29-2023 Urea nitrogen [Mass/Vol] 12 mg/dL 7-[address] [facility] Thin prep Papanicolaou smear with manual screeningOrdered By: Jaime Hansen on 07-29-2023 Thin prep Papanicolaou smear with manual screening 3.4 g/dL 3.2-5.[address] [facility] Thin prep Papanicolaou smear with manual screening 15 U/L 15-[address] [facility] Thin prep Papanicolaou smear with manual screening 4 5-[address] [facility] Absolute lymphocyte countOrd ered By: Jaime Hansen on 03-25-2023 Lymphocytes Auto (Unsp spec) [#/Vol] 3.03 10*3/uL 0.83-4.[address] [facility] Basophil percentageOrdered B y: Jaime Hansen on 03-25-2023 Basophils/100 WBC (Bld) 0.5 % 0-[address] [facility] Bilirubin [Mass/Vol] 0.30 mg/dL 0.20-1.[address] [facility] Comment on above: For patients on eltr ombopag therapy, use of Dimension [place] TBIL is not recommended. Chloride [Moles/Vol] 106 mmol/L 98-[address] [facility] Eosinophils/100 WBC (Bld) 4.5 % 0-[address] [facility] Glucose [Mass/Vol] 73 mg/dL 74-106 [facility] Neutrophils (Bld) [#/Vol] 4.4 10*3/uL 2.0-7.[address] [facility] Neutrophils/100 WBC (Bld) 51.4 % 47-[address] [facility] Potassium [Moles/Vol] 4.0 mmol/L 3.5-5.[address] [facility] Protein [Mass/Vol] 6.9 g/dL 6.4-8.2 [facility] Sodium [Moles/Vol] 140 mmol/L 136-145 [facility] WBC (Bld) [#/Vol] 8.5 10*3/uL 4.4-11.0 [facility] Blood erythrocytes count (nu mber/volume)Ordered By: Jaime Hansen on 03-25-2023 RBC (Bld) [#/Vol] 4.63 10*6/uL 4.2-5.4 [facility] Blood hemoglobin measurement (mass/volume)Ordered By: Jaime Hansen on 03-25-2023 Hemoglobin (Bld) [Mass/Vol] 14.5 g/dL 12.0-15.[address] [facility] Blood lymphocytes/100 leukoc ytesOrdered By: Jaime Hansen on 03-25-2023 Lymphocytes/100 WBC (Bld) 35.7 % 19-[address] [facility] Blood monocytes/100 leukocyt esOrdered By: Jaime Hansen on 03-25-2023 Monocytes/100 WBC (Bld) 7.7 % 0-[address] [facility] Blood platelet mean volumeOr dered By: Jaime Hansen on 03-25-2023 Platelet mean volume (Bld) [Entitic vol] 10.8 fL 6.2-12.[address] [facility] Determination of erythrocyte mean corpuscular volume (MCV)Ordered By: Jaime Hansen on 03-25-2023 MCV (RBC) [Entitic vol] 95.7 fL 81-[address] [facility] Erythrocyte sedimentation ra teOrdered By: Jaime Hansen on 03-25-2023 ESR (Bld) [Velocity] 10 mm/h 0-[address] [facility] Hematocrit Auto (Bld) [Volum e fraction]Ordered By: Jaime Hansen on 03-25-2023 Hematocrit (Bld) [Volume fraction] 44.3 % 37-[address] [facility] Laboratory - Chemistry and C hemistry - challengeOrdered By: Jaime Hansen on 03-25-2023 ALP [Catalytic activity/Vol] 70 U/L 45-[address] [facility] ALT [Catalytic activity/Vol] 39 U/L 13-[address] [facility] CO2 [Moles/Vol] 27.0 mmol/L 21.0-32.[address] [facility] Globulin (S) [Mass/Vol] 3.6 g/dL 2.2-4.[address] [facility] Urea nitrogen/Creatinine [Mass ratio] 21.8 mg/mg 10-[address] [facility] Laboratory - Hematology and Cell countsOrdered By: Jaime Hansen on 03-25-2023 Erythrocyte distribution width (RBC) [Entitic vol] 51.4 fL 35.1-43.[address] [facility] Erythrocyte distribution width (RBC) [Ratio] 14.6 % 11.6-14.[address] [facility] Immature granulocytes/100 WBC (Bld) 0.200 % 0.0-0.9 [facility] Comment on above: IG% - Immature Granu locytes (promyelocytes, myelocytes and metamyelocytes) > 1% indicates that a LEFT SHIFT is Present. MCH (RBC) [Entitic mass] 31.3 pg 27.0-32.[address] [facility] Nucleated RBC/100 WBC (Bld) [Ratio] 0 % 0-[address] [facility] MCHC Auto (RBC) [Mass/Vol]Or dered By: Jaime Hansen on 03-25-2023 MCHC (RBC) [Mass/Vol] 32.7 g/dL 32-[address] [facility] No Panel InformationOrdered By: Jaime Hansen on 03-25-2023 Anti-Nuclear Antibody Screen Negative Negative [facility] Comment on above: Performed at: [facility] [address] [id number] Director: Khanh Baez PhD, Phone: [phone] Estimated GFR (MDRD) Amer 138 mL/min >[address] [facility] Comment on above: GFR Calc Estimated GFR (MDRD) Non-Af Amer 114 mL/min >[address] [facility] Comment on above: Non- GFR Calc Hepatitis B Surface Antigen Non-Reactive Nonreactive [facility] Hepatitis C Antibody Non-Reactive Nonreactive [facility] Comment on above: Non Reactive: < 0.8 Equivocal: >/= 0.8 to < 1.0 Reactive: >/= 1.0The CDC recommends that a reactive/equivocal HCV antibody result be followed up by the HCV Nucleic Acid Amplificationtest (794183) Platelets bldOrdered By: Martina Hansen on 03-25-2023 Platelets (Bld) [#/Vol] 288 10*3/uL 150-[address] [facility] Qualitative QuantiFERON-TB g old in tube testOrdered By: Jaime Hansen on 03-25-2023 M. tuberculosis tuberculin stim IFN-g Ql (Bld) 0.07 IU/mL . [facility] Serum cyclic citrullinated p eptide IgG antibody assay (units/volume)Ordered By: Jaime Hansen on 03-25-2023 Cyclic citrullinated peptide IgG Qn > 250 units 0-[address] [facility] Comment on above: Negative <20 Weak po sitive 20 - 39 Moderate positive 40 - 59 Strong positive >59Performed at: [facility] [id number] [place], [place] [id number] Director: Khanh Baez PhD, Phone: [phone] Serum hepatitis B virus surf romel antibody IgG detectionOrdered By: Jaime Hansen on 03-25-2023 HBV surface IgG Ql (S) Non-Reactive [facility] Comment on above: Non Reactive: Incons istent with immunity less than <10 mIU/mL Reactive: Consistent with immunity greater than or equal to 10 mIU/mL Serum or plasma C reactive p rotein measurement (mass/volume)Ordered By: Jaime Hansen on 03-25-2023 CRP [Mass/Vol] mg/L 0.0-3.[address] [facility] Comment on above: C-Reactive Protein ( CRP) provides useful information for thediagnosis, therapy and monitoring of inflammatory processesand associated diseases. For the evaluation of Relative Riskfor Cardiovascular Disease, a High Sensitivity CRP (HSCRP)should be ordered. Serum or plasma albumin meg urement (mass/volume)Ordered By: Jaime Hansen on 03-25-2023 Albumin [Mass/Vol] 3.3 g/dL 3.2-5.0 [facility] Serum or plasma albumin/glob ulin mass ratioOrdered By: Jaime Hansen on 03-25-2023 Albumin/Globulin [Mass ratio] 0.9 {ratio} 0.9-2.[address] [facility] Serum or plasma calcium meg urement (mass/volume)Ordered By: Jaime Hansen on 03-25-2023 Calcium [Mass/Vol] 8.6 mg/dL 8.5-10.1 [facility] Serum or plasma creatinine m easurement (mass/volume)Ordered By: Jaime Hansen on 03-25-2023 Creatinine [Mass/Vol] 0.60 mg/dL 0.55-1.[address] [facility] Comment on above: The validity of the calculated GFR & GFRAA in patients over 70 years has not been determined. Clinical correlation is essential. Serum or plasma urea nitroge n measurement (mass/volume)Ordered By: Jaime Hansen on 03-25-2023 Urea nitrogen [Mass/Vol] 13 mg/dL 7-[address] [facility] Serum rheumatoid factor dete ctionOrdered By: Jaime Hansen on 03-25-2023 Rheumatoid factor Ql (S) 340.0 IU/mL <[address] [facility] Thin prep Papanicolaou smear with manual screeningOrdered By: Jaime Hansne on 03-25-2023 Thin prep Papanicolaou smear with manual screening 26 U/L 15-[address] [facility] Thin prep Papanicolaou smear with manual screening 7 5-[address] [facility] Thin prep Papanicolaou smear with manual screening Comment . [facility] Comment on above: QuantiFERON-TB Gold Plus is a qualitative indirect test forM tuberculosis infection (including disease) and isintended for use in conjunction with risk assessment,radiography, and other medical and diagnostic evaluations.The QuantiFERON-TB Gold Plus result is determined bysubtracting the Nil value from either TB antigen (Ag)value. The Mitogen tube serves as a control for the test. Thin prep Papanicolaou smear with manual screening 0.09 IU/mL . [facility] Thin prep Papanicolaou smear with manual screening 0.05 IU/mL . [facility] Thin prep Papanicolaou smear with manual screening > 10.00 IU/mL . [facility] Thin prep Papanicolaou smear with manual screening Negative Negative [facility] Comment on above: No response to M tub erculosis antigens detected.Infection with M tuberculosis is unlikely, but high riskindividuals should be considered for additional testing(ATS/IDSA/CDC Clinical Practice Guidelines, 2017). Thereference range is an Antigen minus Nil result of <0.35IU/mL.The specimen received for QuantiFERON testing was incubatedby the ordering institution. Specific procedures outlinedin our Directory of Services and in the package insert forthe QuantiFERON Gold (In Tube) test must be followed toenable for proper stimulation of cells for the productionof interferon gamma. Chemiluminescence immunoassaymethodology BILTon 01-10-2023 Bili Total 0.80 mg/dL Normal 0.20-1.20 [facility] ([place]) Comment on above: Result Comment: Use of this assay is not recommended for patients undergoing treatment with eltrombopag due to the potential for falsely elevated results. Performed By: #### B ILT, HBSAB, ROMEL, RINA, HCV1, PROT, AHBCOT, CCP, HBSAG #### [place] [id number] [place] [address] PROTon 01-10-2023 Total Protein 6.2 G/dL Normal 5.7-8.2 [facility] ([place]) Comment on above: Result Comment: No te - New Reference Range in effect 19 Performed By: #### B ILT, HBSAB, ROMEL, RINA, HCV1, PROT, AHBCOT, CCP, HBSAG #### [address] [address] No Panel Informationon 12-11 IMPRESSION: Small erosion at the right fifth metatarsal head, compatible with rheumatoid arthritis. BILATERAL ANKLES 6 VIEWS: INDICATION: Rheumatoid arthritis FINDINGS: The alignment and bone mineralization are normal bilaterally. No erosions or significant degenerative change. IMPRESSION: No significant degenerative change or evidence of erosive arthropathy. BILATERAL HANDS 5 VIEWS: INDICATION: Rheumatoid arthritis Comparison left hand 03/19/2019 FINDINGS: The alignment and bone mineralization are normal. No chondrocalcinosis, erosions, or significant degenerative change. Small lucency within the left lunate, likely incidental cysts. IMPRESSION: No acute osseous abnormality, significant degenerative change, or evidence of erosive arthropathy Carbonizer: MAYTE Transcribe Date/Time: Dec 11 2022 10:37A Dictated by : MAXINE SMYTH MD This examination was interpreted and the report reviewed and electronically signed by: MAXINE SMYTH MD on Dec 11 2022 10:41AM [facility] No Panel InformationOrdered By: [facility] Provider on 12-11-2022 [facility] XR Ankle - bilateral AP and Lateral and obliqueon 12-11-2022 * * *Final Report* * * DATE OF EXAM: Dec 10 2022 8:34AM [id number] [id number] - XR ANKLE 3V AP/LAT/OBL PIERRE / PROCEDURE REASON: RHEUMATOID ARTHRITIS * * * * Physician Interpretation * * * * XR FOOT 3V AP/LAT/OBL PIERRE, XR ANKLE 3V AP/LAT/OBL PIERRE, XR HAND 2V PA/LAT PIERRE Ordering Physician: YONY ONEIL BILATERAL FEET 6 VIEWS Clinical Statement: Rheumatoid arthritis. Comparison right foot 08/02/2018 FINDINGS: Left foot: The alignment and bone mineralization are normal. No erosions or significant degenerative change. Right foot: The alignment and bone mineralization are normal. Small focal erosion at the head of the fifth metatarsal, new from the prior study. No other erosions identified. There is no chondrocalcinosis [facility] Provider, eric Fabian - 12/11/2022 * * *Final Report* * * DATE OF EXAM: Dec 10 2022 8:34AM [id number] [id number] - XR ANKLE 3V AP/LAT/OBL PIERRE / PROCEDURE REASON: RHEUMATOID ARTHRITIS * * * * Physician Interpretation * * * * XR FOOT 3V AP/LAT/OBL PIERRE, XR ANKLE 3V AP/LAT/OBL PIERRE, XR HAND 2V PA/LAT PIERRE Ordering Physician: YONY ONEIL BILATERAL FEET 6 VIEWS Clinical Statement: Rheumatoid arthritis. Comparison right foot 08/02/2018 FINDINGS: Left foot: The alignment and bone mineralization are normal. No erosions or significant degenerative change. Right foot: The alignment and bone mineralization are normal. Small focal erosion at the head of the fifth metatarsal, new from the prior study. No other erosions identified. There is no chondrocalcinosis IMPRESSION IMPRESSION: Small erosion at the right fifth metatarsal head, compatible with rheumatoid arthritis. BILATERAL ANKLES 6 VIEWS: INDICATION: Rheumatoid arthritis FINDINGS: The alignment and bone mineralization are normal bilaterally. No erosions or significant degenerative change. IMPRESSION: No significant degenerative change or evidence of erosive arthropathy. BILATERAL HANDS 5 VIEWS: INDICATION: Rheumatoid arthritis Comparison left hand 03/19/2019 FINDINGS: The alignment and bone mineralization are normal. No chondrocalcinosis, erosions, or significant degenerative change. Small lucency within the left lunate, likely incidental cysts. IMPRESSION: No acute osseous abnormality, significant degenerative change, or evidence of erosive arthropathy Carbonizer: MAYTE Transcribe Date/Time: Dec 11 2022 10:37A Dictated by : MAXINE SMYTH MD This examination was interpreted and the report reviewed and electronically signed by: MAXINE SMYTH MD on Dec 11 2022 10:41AM EST [facility] XR Foot - bilateral AP and L ateral and obliqueon 12-11-2022 * * *Final Report* * * DATE OF EXAM: Dec 10 2022 8:34AM [id number] [id number] - XR FOOT 3V AP/LAT/OBL PIERRE / PROCEDURE REASON: RHEUMATOID ARTHRITIS * * * * Physician Interpretation * * * * XR FOOT 3V AP/LAT/OBL PIERRE, XR ANKLE 3V AP/LAT/OBL PIERRE, XR HAND 2V PA/LAT PIERRE Ordering Physician: YONY ONEIL BILATERAL FEET 6 VIEWS Clinical Statement: Rheumatoid arthritis. Comparison right foot 08/02/2018 FINDINGS: Left foot: The alignment and bone mineralization are normal. No erosions or significant degenerative change. Right foot: The alignment and bone mineralization are normal. Small focal erosion at the head of the fifth metatarsal, new from the prior study. No other erosions identified. There is no chondrocalcinosis [facility] Provider, eric Fabian - 12/11/2022 * * *Final Report* * * DATE OF EXAM: Dec 10 2022 8:34AM [id number] [id number] - XR FOOT 3V AP/LAT/OBL PIERRE / PROCEDURE REASON: RHEUMATOID ARTHRITIS * * * * Physician Interpretation * * * * XR FOOT 3V AP/LAT/OBL PIERRE, XR ANKLE 3V AP/LAT/OBL PIERRE, XR HAND 2V PA/LAT PIERRE Ordering Physician: YONY ONEIL BILATERAL FEET 6 VIEWS Clinical Statement: Rheumatoid arthritis. Comparison right foot 08/02/2018 FINDINGS: Left foot: The alignment and bone mineralization are normal. No erosions or significant degenerative change. Right foot: The alignment and bone mineralization are normal. Small focal erosion at the head of the fifth metatarsal, new from the prior study. No other erosions identified. There is no chondrocalcinosis IMPRESSION IMPRESSION: Small erosion at the right fifth metatarsal head, compatible with rheumatoid arthritis. BILATERAL ANKLES 6 VIEWS: INDICATION: Rheumatoid arthritis FINDINGS: The alignment and bone mineralization are normal bilaterally. No erosions or significant degenerative change. IMPRESSION: No significant degenerative change or evidence of erosive arthropathy. BILATERAL HANDS 5 VIEWS: INDICATION: Rheumatoid arthritis Comparison left hand 03/19/2019 FINDINGS: The alignment and bone mineralization are normal. No chondrocalcinosis, erosions, or significant degenerative change. Small lucency within the left lunate, likely incidental cysts. IMPRESSION: No acute osseous abnormality, significant degenerative change, or evidence of erosive arthropathy Carbonizer: MAYTE Transcribe Date/Time: Dec 11 2022 10:37A Dictated by : MAXINE SMYTH MD This examination was interpreted and the report reviewed and electronically signed by: MAXINE SMYTH MD on Dec 11 2022 10:41AM EST [facility] XR Hand - bilateral PA and L ateralon 12-11-2022 * * *Final Report* * * DATE OF EXAM: Dec 10 2022 8:34AM [id number] [id number] - XR HAND 2V PA/LAT PIERRE / PROCEDURE REASON: RHEUMATOID ARTHRITIS * * * * Physician Interpretation * * * * XR FOOT 3V AP/LAT/OBL PIERRE, XR ANKLE 3V AP/LAT/OBL PIERRE, XR HAND 2V PA/LAT PIERRE Ordering Physician: YONY ONEIL BILATERAL FEET 6 VIEWS Clinical Statement: Rheumatoid arthritis. Comparison right foot 08/02/2018 FINDINGS: Left foot: The alignment and bone mineralization are normal. No erosions or significant degenerative change. Right foot: The alignment and bone mineralization are normal. Small focal erosion at the head of the fifth metatarsal, new from the prior study. No other erosions identified. There is no chondrocalcinosis [facility] Provider, [facility] - 12/11/2022 * * *Final Report* * * DATE OF EXAM: Dec 10 2022 8:34AM [id number] [id number] - XR HAND 2V PA/LAT PIERRE / PROCEDURE REASON: RHEUMATOID ARTHRITIS * * * * Physician Interpretation * * * * XR FOOT 3V AP/LAT/OBL PIERRE, XR ANKLE 3V AP/LAT/OBL PIERRE, XR HAND 2V PA/LAT PIERRE Ordering Physician: YONY ONEIL BILATERAL FEET 6 VIEWS Clinical Statement: Rheumatoid arthritis. Comparison right foot 08/02/2018 FINDINGS: Left foot: The alignment and bone mineralization are normal. No erosions or significant degenerative change. Right foot: The alignment and bone mineralization are normal. Small focal erosion at the head of the fifth metatarsal, new from the prior study. No other erosions identified. There is no chondrocalcinosis IMPRESSION IMPRESSION: Small erosion at the right fifth metatarsal head, compatible with rheumatoid arthritis. BILATERAL ANKLES 6 VIEWS: INDICATION: Rheumatoid arthritis FINDINGS: The alignment and bone mineralization are normal bilaterally. No erosions or significant degenerative change. IMPRESSION: No significant degenerative change or evidence of erosive arthropathy. BILATERAL HANDS 5 VIEWS: INDICATION: Rheumatoid arthritis Comparison left hand 03/19/2019 FINDINGS: The alignment and bone mineralization are normal. No chondrocalcinosis, erosions, or significant degenerative change. Small lucency within the left lunate, likely incidental cysts. IMPRESSION: No acute osseous abnormality, significant degenerative change, or evidence of erosive arthropathy Carbonizer: MAYTE Transcribe Date/Time: Dec 11 2022 10:37A Dictated by : MAXINE SMYTH MD This examination was interpreted and the report reviewed and electronically signed by: MAXINE SMYTH MD on Dec 11 2022 10:41AM EST [facility] No Panel Informationon 12-10 Radiology Study observation (narrative) [facility] BILTon 12-09-2022 Bili Total 0.20 mg/dL Normal 0.20-1.20 [facility] ([place]) Comment on above: Result Comment: Use of this assay is not recommended for patients undergoing treatment with eltrombopag due to the potential for falsely elevated results. Performed By: #### B ILT, PROT #### [address] [address] PROTon 12-09-2022 Total Protein 6.7 G/dL Normal 5.7-8.2 [facility] ([place]) Comment on above: Result Comment: No te - New Reference Range in effect 19 Performed By: #### B ILT, HBSAB, ROMEL, RINA, HCV1, PROT, AHBCOT, CCP, HBSAG #### [address] [address] CCPon 11-04-2022 Cyclic Citrullinated Peptide 150.9 High <=20.0 [facility] ([place]) Comment on above: Result Comment: Cycl ic Citrullinated IgG Interpretation: Result Units Negative <20 Weak Positive 20-39 Moderate Positive 40-59 Strong Positive >=60 A positive result indicates the presence of IgG anti-CCP3 antibodies and suggests the possibility of RA. A negative result indicates no CCP3 antibody or levels below the negative cut-off of the assay. Results of this assay should be used in conjunction with clinical findings and other serological tests. These test results were obtained with the [employer] CCP3 IgG HERMINIO. Anti-CCP values obtained with different manufacturers' assay methods may not be used interchangeably. Performed By: #### B ILT, HBSAB, ROMEL, RINA, HCV1, PROT, AHBCOT, CCP, HBSAG #### [address] [address] ACEon 11-03-2022 Angiotensin Conv Enzyme 45 U/L Normal <=52 [facility] ([place]) Comment on above: Result Comment: Valeria ficially low ROMEL levels may be found for patients taking ROMEL inhibitors or after the administration of gadolinium. This test was developed and its performance characteristics determined by [facility]'s [facility] [employer] ([facility] It has not been cleared or approved by the FDA. -[facility] is regulated under CLIA as qualified to perform high-complexity testing. This test is used for clinical purposes. It should not be regarded as investigational or for research. Performed By: [facility] [employer] [place] [address] Title Specialist: Juliano Tariq III, M.D. CLIA#: [id number] Performed By: #### B ILT, HBSAB, ROMEL, RINA, HCV1, PROT, AHBCOT, CCP, HBSAG #### [address] [address] HBCABon 11-03-2022 Hep B Core Ab Negative Normal Negative [facility] ([place]) Comment on above: Result Comment: No e vidence of current or past infection with Hepatitis B virus. Should recent infection be suspected, repeat testing may be considered 3-4 weeks after this draw. Performed By: [facility] [place] [address] Title Specialist: Juliano Tariq III, M.D. [facility]#: [id number] Performed By: #### B ILT, HBSAB, ROMEL, RINA, HCV1, PROT, AHBCOT, CCP, HBSAG #### [place] [address] MITOon 11-03-2022 Mitochondrial Ab Neg 20 Normal Neg 20 [facility] ([place]) Comment on above: Result Comment: Rina chondrial Ab Screen and Titer methodology is an immunofluorescent technique utilizing MSK Substrate. Performed By: #### B ILT, HBSAB, ROMEL, RINA, HCV1, PROT, AHBCOT, CCP, HBSAG #### [place] [address] BILTon 11-01-2022 Bili Total 0.50 mg/dL Normal 0.20-1.20 [facility] ([place]) Comment on above: Result Comment: Use of this assay is not recommended for patients undergoing treatment with eltrombopag due to the potential for falsely elevated results. Performed By: #### B ILT, HBSAB, ROMEL, RINA, HCV1, PROT, AHBCOT, CCP, HBSAG #### [place] [address] HBSABon 11-01-2022 Hep B Surf Ab <3.1 Low >=10.0 [facility] ([place] Comment on above: Result Comment: 0 to < 10.0 mIU/mL Nonreactive Patient is considered not to have protective immunity to HBV infection >/= 10.0 mIU/mL Reactive Patient is considered to have protective immunity to HBV infection. This assay is traceable to the World Health Organization (WHO) Hepatitis B Immunoglobulin 1st International Reference Preparation (1976). The accepted criteria for immunity to HBV is anti-HBs activity >/= 10.0 mIU/mL, as defined by the WHO International Reference Preparation. Performed By: #### B ILT, HBSAB, ROMEL, RINA, HCV1, PROT, AHBCOT, CCP, HBSAG #### [place] [address] HBSAGon 11-01-2022 Hep B Surf Ag Non-Reactive Normal Non-Reactive [facility] ([place]) Comment on above: Performed By: #### B ILT, HBSAB, ROMEL, RINA, HCV1, PROT, AHBCOT, CCP, HBSAG #### [place] [address] HCVon 11-01-2022 Hep C Ab Non-Reactive Normal Non-Reactive [facility] ([place] Comment on above: Performed By: #### B ILT, HBSAB, ROMEL, RINA, HCV1, PROT, AHBCOT, CCP, HBSAG #### [place] [address] Hep C Ab Int Normal [facility] ([place] Comment on above: Result Comment: Nonr eactive: Samples with a value < 0.80 are considered nonreactive (negative) for antibodies to HCV. A negative test result does not exclude the possibility of exposure to or infection with HCV. HCV antibodies may be undetectable in some stages of the infection and in some clinical conditions. See Interp Performed By: #### B ILT, HBSAB, ROMEL, RINA, HCV1, PROT, AHBCOT, CCP, HBSAG #### [place] [address] PROTon 11-01-2022 Total Protein 6.3 G/dL Normal 5.7-8.2 [facility] ([place] Comment on above: Result Comment: No te - New Reference Range in effect 19 Performed By: #### B ILT, HBSAB, ROMEL, RINA, HCV1, PROT, AHBCOT, CCP, HBSAG #### [place] [address] URINE CULTUREon 11-21-2020 Bacteria identified Cx Nom (U) ORGANISM 1: ENTEROBACTER AEROGENES COLONY COUNT >100,000 ENTEROBACTER AEROGENES: REACTION AMIKACIN <16 S AMPICILLIN >16 R AZTREONAM <4 S CEFAZOLIN >16 R CEFEPIME <2 S CEFOTAXIME <2 S CEFOTETAN <16 S CEFTAZIDIME <1 S CIPROFLOXACIN <1 S GENTAMICIN <4 S MINOCYCLINE <4 S ERTAPENEM <0.5 S NITROFURANTOIN 64 I PIPERACILLIN/TAZOBACTAM <16 S TETRACYCLINE <4 S TOBRAMYCIN <4 S TRIMETH/SULFA <2/38 S LEVOFLOXACIN <2 S MEROPENEM <1 S [facility] Comment [facility] above: Order Comment: Harpalu s: FRANCY DIPSTICKon 11-19-2020 POC APPEARANCE CLOUDY Normal CLEAR [facility] Comment on above: Order Comment: Campu s: MAS POC BILIRUBIN Negative Normal NEGATIVE [facility] Comment on above: Order Comment: Campu s: MAS POC BLOOD 200 Normal NEGATIVE [facility] Comment on above: Order Comment: Campu s: MAS POC COLOR YELLOW Normal [facility] Comment on above: Order Comment: Campu s: MAS POC KETONE Negative Normal NEGATIVE [facility] Comment on above: Order Comment: Campu s: MAS POC LEUK EST 70 GABRIELLE/uL Normal NEGATIVE [facility] Comment on above: Order Comment: Campu s: MAS POC NITRITE Negative Normal NEGATIVE [facility] Comment on above: Order Comment: Campu s: MAS POC PROTEIN 100 MG/DL Normal NEGATIVE [facility] Comment on above: Order Comment: Campu s: MAS POC SPEC GRAV 1.030 Normal 1.005-1.030 [facility] Comment [facility] above: Order Comment: Campu s: MAS POC UA GLUCOSE NORMAL Normal NORMAL [facility] Comment on above: Order Comment: Campu s: MAS POC UA PH 5.5 Normal 5-6 [facility] Comment on above: Order Comment: Campu s: MAS POC UROBIL NORMAL Normal NORMAL [facility] Comment on above: Order Comment: Harpalsiomara s: FRANCY MSCon 11-19-2020 [facility] REPORT Normal [facility] DATE OF SERVICE: 11/2020 REASON FOR VISIT: Urgency and frequency of urination with blood in the urine. HISTORY OF PRESENT ILLNESS: This is a 45-year-old female presented with urgency and frequency of urination for the last few days and also has blood in the urine now. No fever or chills. No other problems at this visit. REVIEW OF SYSTEMS: Review of other systems normal. ALLERGIES: VICODIN. MEDICATIONS: None. PHYSICAL EXAMINATION: She is awake, alert, not in distress. No dyspnea. Temperature 97.8, blood pressure 120/80, pulse 74, respirations 18, pulse oximetry 97% on room air. Pain score 8/10. HEENT: Unremarkable. Chest: Clear to auscultation. Heart: Regular rate and rhythm. No CVA tenderness. Abdomen: Benign. Urine dipstick was moderately positive for leukocyte esterase, also blood and protein. ASSESSMENT: Urinary tract infection. [facility] PATIENT NAME: BRANDI HOLCOMB [address] [place] MEDICAL REC #: [id number] [place] [address] [facility] REPORT STATCARE PHYSICIAN PLAN: Clinical plan was discussed with patient in detail. I gave her Macrobid 100 mg twice a day for 5 days with no refill. She should drink a lot of fluid. I will send the urine for culture as well. Patient understood and agreed. She will follow up with her doctor. Dylan Noel MD [id number] [facility] File#: [id number] END OF DOCUMENT / CHANGE LOG FOLLOWS Last Edited By [employer]. Signed By Dylan Noel MD #PAWPR Dylan Noel MD #PAWPR on 12/26/2020 17:53 ET on 12/26/2020 17:53 ET Revision Number - 2 Verified/Reviewed by 12/26/[address] [facility] PATIENT NAME: BRANDI HOLCOMB [address] [place] MEDICAL REC #: [id number] [place] [address] [facility] REPORT STATCARE PHYSICIAN Normal [facility] [place] Vital Signs Date Time Vital Sign Value Performing Clinician Pauli litgeoffrey 12-19-2024 09:010400 Body height 162.56 cm No Primary Care Physician [facility] 12-19-2024 09:01-0400 Body mass index (BMI) [Ratio] 39.9 kg/m2 No Primary Care Physician [facility] 12-19-2024 09:01040 Body weight 105.68 kg No Primary Care Physician [facility] 04-19-2023 17:37-0500 Body temperature 98.1 [degF] Tiny Vides MD Work Phone: [facility] 04-19-2023 17:37-0500 Diastolic blood pressure 85 mm[Hg] Tiny Vides MD Work Phone: [facility] 04-19-2023 17:37-0500 Heart rate 90 /min Tiny Vides MD Work Phone: [facility] 04-19-2023 17:37-0500 Respiratory rate 18 /min Tiny Vides MD Work Phone: [facility] 04-19-2023 17:37-0500 SaO2% (BldA) [Mass fraction] 98 % Tiny Vides MD Work Phone: [facility] 04-19-2023 17:37-0500 Systolic blood pressure 134 mm[Hg] Tiny Vides MD Work Phone: [facility] 10-14-2022 08:25-0400 Body temperature 98.6 [degF] Dylan Noel MD Work Phone: [facility] 10-14-2022 08:25-0400 Body weight 107.96 kg Dylan Noel MD Work Phone: [facility] 10-14-2022 08:25-0400 Diastolic blood pressure 70 mm[Hg] Dylan Noel MD Work Phone: [facility] 10-14-2022 08:25-0400 Heart rate 77 /min Dylan Noel MD Work Phone: [facility] 10-14-2022 08:25-0400 Respiratory rate 16 /min Dylan Noel MD Work Phone: [facility] 10-14-2022 08:25-0400 SaO2% (BldA) [Mass fraction] 98 % Dylan Noel MD Work Phone: [facility] 10-14-2022 08:25-0400 Systolic blood pressure 130 mm[Hg] Dylan Noel MD Work Phone: [facility] Encounters Encounter Date Encounter Type Care Provider Facility Start: 01-22-2025 ambulatory No Primary Car e Physician Facility:[facility] Start: 01-08-2025 End: 01-08-2025 ambulatory ANITRA OWENS APRN-MECHATRONICS TECHNOLOGIST Facility:A Start: 12-20-2024 End: 12-20-2024 ambulatory SELF Facility:[id number] Start: 12-19-2024 End: 12-19-[address] Geovani Arredondo MD -[facility] Start: 12-19-2024 End: 12-19-2024 ambulatory No Primary Care Physician -[facility] Start: 11-22-2024 End: 11-22-2024 ambulatory ANITRA OWENS APRN-[place] Facility:A Start: 08-27-2024 End: 08-27-[address] JAIME HANSEN MD Facility:A Start: 06-06-2024 End: 06-06-2024 ambulatory ANITRA OWENS APRN-[place] Facility:A Start: 03-14-2024 End: 03-14-[address] JAIME HANSEN MD Facility:A Start: 10-17-2023 End: 10-17-[address] JAIME HANSEN MD Facility:A Start: 10-06-2023 End: 10-06-2023 ambulatory ANITRA OWENS APRN-MECHATRONICS TECHNOLOGIST Facility:A Start: 09-20-2023 End: 09-20-2023 ambulatory ANITRA OWENS PUBLIC SPEAKER-MECHATRONICS TECHNOLOGIST Facility:A Start: 07-29-2023 End: 07-29-[address] [facility] Work Phone: Start: 07-29-2023 End: 07-29-2023 [address] [facility] Work Phone: Start: 04-19-2023 End: 04-19-2023 Office outpatient visit 15 minutes Tiny Vides MD Work Phone: [facility] Comment on above: Strep throat (Primar y Dx) Start: 04-04-2023 End: 04-04-[address] [facility] Work Phone: Start: 04-04-2023 End: 04-04-[address] [facility]: Start: 03-25-2023 End: 03-25-[address] [facility] Work Phone: Start: 03-25-2023 End: 03-25-2023 Patient encounter procedure [facility] Work Phone: Start: 01-10-2023 End: 01-14-2023 ambulatory YONY ONEIL MD Facility:A Start: 12-10-2022 End: 12-10-2022 Subsequent hospital visit by physician Xr [facility] Work Phone: [facility] Comment on above: Rheumatoid arthritis with rheumatoid factor of multiple sites without organ or systems involvement [M05.79] Start: 12-08-2022 End: 12-12-2022 ambulatory YONY ONEIL MD Facility:A Start: 11-01-2022 End: 11-05-2022 ambulatory YONY ONEIL MD Facility:A Start: 10-14-2022 End: 10-14-2022 Office outpatient visit 15 minutes Dylan Noel MD Work Phone: [facility] Comment on above: Herpes zoster withou t complication (Primary Dx) Start: 12-25-2020 Patient encounter procedure Dylan Noel MD Work Phone: [facility] Start: 12-25-2020 Progress Note Dylan Noel MD [facility] Phone[facility] Procedures Date Procedure Procedure Detail Performing Clinician Start: 04-04-2023 Plain chest X-ray Start: 12-10-2022 Radex ankle complete minimum 3 views Yony Oneil MD Work Phone: Plan of Treatment Date Care Activity Detail Author Start: 12-19-2024 Plain x-ray of elbow Elbow min [address] [facility] Start: 12-19-2024 XR Elbow GE [address] [facility] Start: 01-15-2024 Influenza vaccination Influenza Vaccine (#1) [facility] Start: 01-14-[address] [facility] Start: 10-04-2022 Urine microalbumin profile DTaP,Tdap,Td Vaccine (2 - Td or Tdap) [facility] Start: 05-16-2022 DEPRESSION ASSESSMENT DEPRESSION ASSESSMENT [facility] Start: 11-13-2020 COVID-19 VACCINE (3 - Booster for Pfizer series) COVID-19 VACCINE (3 - Booster for Pfizer series) [facility] Start: 10-16-2020 Covid-19 Vaccine (3 - Pfizer risk series) Covid-19 Vaccine (3 - Pfizer risk series) [facility] Start: 07-18-2019 COLOGUARD (FIT-DNA) COLOGUARD (FIT-DNA) [facility] Start: 07-18-[address] [facility] Start: 07-18-2019 COLORECTAL CANCER SCREENING COLORECTAL CANCER SCREENING [facility] Start: 07-18-[address] [facility] Start: 07-18-2019 DIABETES SCREEN DIABETES SCREEN [facility] Start: 07-18-2019 Diabetes Screening Diabetes Screening [facility] Start: 07-18-2019 FECAL OCCULT BLOOD FECAL OCCULT BLOOD [facility] Start: 07-18-2019 Lipid 1996 panel - Serum or Plasma Lipid Screening [facility] Start: 07-18-2019 Lipid panel Lipid Screening [facility] Start: 07-18-2019 [address] L[address] SCREEN [facility] Start: 07-18-2019 Screening for malignant neoplasm of colon [facility] Start: 07-18-[address] [facility] Start: [address] [facility] Start: 2014 Screening for malignant neoplasm of breast Mammogram Screening [facility] Start: 2004 HPV TESTING HPV TESTING [facility] Start: 07-18-1995 PAP TESTING PAP TESTING [facility] Start: 1993 Hepatitis B Vaccine (1 of 3 - 19+ 3-dose series) Hepatitis B Vaccine (1 of 3 - 19+ 3-dose series) [facility] Start: 1993 Shingrix Vaccine (1 of 2) Shingrix Vaccine (1 of 2) [facility] Start: 1993 Urine microalbumin profile DTAP,TDAP,TD (1 - Tdap) [facility] Start: 1992 Anxiety Screening Anxiety Screening [facility] Start: 1992 Depression Screening Depression Screening [facility] Start: 1992 HEPATITIS C SCREENING HEPATITIS C SCREENING [facility] Start: 1992 Hepatitis C screening Hepatitis C Screening [facility] Start: 1992 HIV SCREENING HIV SCREENING [facility] Start: 1992 HIV screening HIV Screening [facility] Start: 1985 Screening for malignant neoplasm of cervix Cervical Cancer Screening [facility] Start: 1980 Pneumococcal vaccination [facility] Start: 1974 HEPATITIS B (1 of 3 - 3-dose series) HEPATITIS B (1 of 3 - 3-dose series) [facility] Start: 1974 Hepatitis B Vaccine (1 of 3 - 3-dose series) Hepatitis B Vaccine (1 of 3 - 3-dose series) [facility] Immunizations Immunization Date Immunization Notes Care Provider Fa cility 02-02-2017 influenza virus vacc ine, unspecified formulation Tiny Vides MD Work Phone: [facility] Payers Date Payer Category Payer Self-pay 2022 Unknown [id number] 2016 Unknown [id number] 1974 Unknown [id number] 2.16.8 [id number] 1974 Unknown [id number] 2.16.8 [id number] 1974 Unknown [id number] 2.16.8 40.1.072894.3.579.2.7 1974 Unknown [id number] 2.16.8 40.1.091965.3.579.2.7 1974 Unknown [id number] 2.16.8 40.1.933071.3.579.2.7 1974 Unknown [id number] 2.16.8 40.1.673117.3.579.2.7 1974 Unknown [id number] 2.16. [id number] 1974 Unknown [id number] 2.16. [id number] 1974 Unknown [id number] 2.16.8 40.1.640874.3.579.2.7 1974 Unknown [id number] 2.16.8 40.1.792200.3.579.2.7 1974 Unknown [id number] 2.16.8 [id number] Unknown [id number] 2.16.8 [id number] Unknown [id number] 2.16.8 [id number] Unknown [id number] 2.16.8 [id number] Social History Date Type Detail Facility Tobacco smoking stat [facility] Tobacco smoking consumption unknown [facility] Start: 1975 Sex Assigned At Not on file C [facility] Start: 10-14-2022 Tobacco smoking stat [facility] Never smoked tobacco [facility] Start: 10-14-2022 End: 04-19-2023 Tobacco use and exposure Smokeless tobacco non-user [facility] Start: 1975 Sex Assigned At Female W [facility] Start: 04-19-2023 End: 12-19-2024 Tobacco smoking status NHIS Smokes tobacco daily [facility] History of tobacco use Cigarette Smoker C [facility] Start: 04-19-2023 Alcohol intake Ex-drinker (finding) [facility] Start: 10-14-2022 End: 04-19-[address]23 [address] [facility] Start: 10-14-2022 End: 04-19-[address] [facility] Adult Depression Screening Assessment [address] [facility] Clinical Notes 12-25-2020 to 12-20-2024 Patient InstructionsTiny Vides MD - 04/19/2023 5:43 PM Ronny Williamson RT(R) - 12/10/2022 8:00 AM EDTPatient InstructionsDylan Noel MD - 10/14/2022 8:30 AM EDT Note Date & Type Note Facility 12-20-2024 Note HNO ID: [id number] Author: KYUNG FOOTE LPN Service: ? Author Type: LICENSED NURSE Type: Progress Notes Filed: 12/20/2024 18:21 Note Text: Patient declined depression screening at this time. Kyung Foote LPN [facility] 12-20-2024 Note HNO ID: [id number] Author: MARTHA NIELSEN DO Service: ? Author Type: Physician Type: Progress Notes Filed: 12/20/2024 18:21 Note Text: [facility] RAFAEL Holcomb is a 49 year old female. Patient presents with: Ear Problem: Right ear pain x 1 week Ear Problem Right Ear Pain: - Acute onset of right ear pain, described as shooting pains, not constant. - Pain was severe upon waking, possibly due to lying on the affected ear. - Noted a lump behind the ear. - Recent travel to [place] approximately 1.5 weeks ago. - Denies use of Q-tips in ears, known insect bites, fevers, chills, chest pain, or dyspnea. - No pain in the external ear. Review of Systems HENT: Positive for ear pain. Constitutional: (-) fever, (-) chills Ears/Nose/Mouth/Throat: (+) right ear pain Cardiovascular: (-) chest pain Respiratory: (-) dyspnea Objective BP 118/78 Pulse 95 Temp 36.4 ?C (97.6 ?F) Resp 18 Wt 107.3 kg (236 lb 9.6 oz) SpO2 97% Physical Exam HENT: Nose: Congestion and rhinorrhea present. Mouth/Throat: Mouth: Mucous membranes are moist. Pharynx: Oropharynx is clear. No oropharyngeal exudate or posterior oropharyngeal erythema. Eyes: General: Right eye: No discharge. Left eye: No discharge. Conjunctiva/sclera: Conjunctivae normal. Pupils: Pupils are equal, round, and reactive to light. Musculoskeletal: Cervical back: Normal range of motion. No rigidity or tenderness. Lymphadenopathy: Cervical: No cervical adenopathy. General: No acute distress. HEENT: Right external ear canal erythema, cerumen impaction occluding approximately 50% of right ear canal, left ear canal normal, mild nasal congestion, no significant lymphadenopathy. CV: Normal heart sounds. Resp: Lungs clear to auscultation bilaterally. {ASSESSMENT/PLAN: 1. Non-recurrent acute serous otitis media of right ear - ICD9: 381.01, ICD10: H65.01 (primary diagnosis) - AMOXICILLIN 875 MG-POTASSIUM CLAVULANATE 125 MG TABLET - AMBULATORY EAR LAVAGE/IRRIGATION 2. Impacted cerumen of right ear - ICD9: 380.4, ICD10: H61.21 - Exam shows early signs of right-sided otitis media with approximately 50% cerumen impaction. - Attempted cerumen removal in clinic; if unsuccessful, will prescribe cerumenolytic drops for home use. Cerumen removal in clinic was successful, 100% of wax removed, tympanic membrane is still intact afterwards. - Augmentin will be written to help treat otitis media and prevent other symptoms. Get reevaluated if not improving after 1 week. - Advised use of Tylenol or ibuprofen for pain; encouraged adequate hydration and close symptom monitoring. - Follow-up in one week to reassess; instructed to seek earlier evaluation if symptoms worsen. Recording using [employer] software for draft documentation of the visit was discussed with the patient/authorized patient financial representative; all questions welcomed and answered. Patient/authorized patient financial representative agreed to proceed - AMOXICILLIN 875 MG-POTASSIUM CLAVULANATE 125 MG TABLET - AMBULATORY EAR LAVAGE/IRRIGATION Martha Nielsen DO Differential Diagnoses - Right otitis media, impacted cerumen is more likely for the following reason(s): suggested by HANDP - Otitis externa, perforation is less likely for the following reason(s): HANDP not suggestive Disposition The patient was discharged. OTC Medications were advised: Cerumen Removal Performed by: Martha Nielsen DO Authorized by: Martha Nielsen DO Informed Consent Consent Obtained: Verbal [place] Protocol A moment to CARE was completed. SIGN IN Personnel directly involved with the procedure wore the appropriate PPE. Special Equipment: N/A Patient/Surrogate Stated/Verified: Patient name and Date of TIME OUT Consent obtained and matches the intended procedure. Correct side/site marked and visible. Medications required for procedure verified. Fire risk assessed and interventions discussed. Procedure details: Location: R ear Post-procedure details: Inspection: TM intact Hearing quality: Improved Patient tolerance of procedure: Tolerated well, no immediate complications [facility] 12-20-2024 Note HNO ID: [id number] Author: KYUNG FOOTE LPN Service: ? Author Type: LICENSED NURSE Type: Progress Notes Filed: 12/20/2024 18:21 Note Text: Ambulatory Ear Lavage Pre-treatment: No pre-treatment Treatment: Right ear Equipment and Irrigation solution and Volume used: Single use syringe with single use irrigation tip Water Return flow appearance: Clear Debris Patient tolerated procedure: yes Tympanic membrane assessment: Tympanic membrane assessed by LIP pre and post procedure Kyung Foote LPN [facility] 04-19-2023 Instructions Tiny Vides MD - 04/19/2023 5:46 PM EST STREP INFECTIONS: Streptococcal bacteria can cause a sore throat, ear and sinus infections, and skin diseases. Strep throat is diagnosed by a special throat swab or culture test. These infections require either an antibiotic shot or an oral antibiotic medicine to get rid of all the bacteria and prevent rheumatic fever, a dangerous complication. The symptoms of Strep infection, however, usually get better after just 2-3 days of drug treatment. These infections are very contagious; any close contacts who have a fever, sore throat, or illness symptoms should see their doctor right away. Strep is no longer contagious after 24 hours of antibiotic treatment so you may return to school or work if your fever and pain are better in one day. Strep infections can cause serious complications including throat abscess, rheumatic fever and kidney disease, so be sure to take all your antibiotic medicine. See your doctor or return here if your symptoms worsen or are not improved in 3 days or for difficulty breathing or inability to swallow. documented in this encounter [facility] 04-19-2023 History of Present illness Narrative Formatting of this note is different fro m the original. Brandi Holcomb is a 47 year old female who presents with Sore Throat (H/A x 1 day) The history is provided by the patient. No english language learner tutor was used. Sore Throat This is a new problem. The current episode started yesterday. The problem has been gradually worsening. The pain is worse on the right side. There has been no fever. Associated symptoms include headaches and neck pain. Pertinent negatives include no congestion, coughing or shortness of breath. She has tried acetaminophen for the symptoms. History reviewed. No pertinent past medical history. There is no problem list on file for this patient. Current Outpatient Medications Medication Sig Dispense Refill PARoxetine (PAXIL) 20 mg tablet Take 1 tablet by mouth every afternoon. methotrexate 2.5 mg tablet Take 15 mg by mouth. folic acid 1 mg tablet Take 1 tablet by mouth every afternoon. meloxicam (MOBIC) 15 mg tablet TAKE ONE TABLET BY MOUTH EVERY DAY. TAKE WITH FOOD / MILK No current facility-administered medications for this visit. Social History Tobacco Use Smoking status: Every Day Types: Cigarettes Smokeless tobacco: Never Vaping Use Vaping Use: Never used Substance Use Topics Alcohol use: Not Currently Drug use: Not Currently Alcohol Use: Not Currently Tobacco Use: Types: Cigarettes History reviewed. No pertinent family history. Review of Systems Constitutional: Negative for chills and fever. HENT: Positive for sore throat. Negative for congestion. Respiratory: Negative for cough, shortness of breath and wheezing. Musculoskeletal: Positive for neck pain. Neurological: Positive for headaches. BP 134/85 Pulse 90 Temp 98.1 Resp 18 SpO2 98% Physical Exam Vitals and nursing note reviewed. Constitutional: Appearance: Normal appearance. She is not ill-appearing. HENT: Right Ear: Tympanic membrane normal. Left Ear: Tympanic membrane normal. Nose: Congestion present. No rhinorrhea. Mouth/Throat: Mouth: Mucous membranes are moist. Pharynx: Oropharyngeal exudate and posterior oropharyngeal erythema present. Eyes: Extraocular Movements: Extraocular movements intact. Conjunctiva/sclera: Conjunctivae normal. Pupils: Pupils are equal, round, and reactive to light. Cardiovascular: Rate and Rhythm: Normal rate and regular rhythm. Heart sounds: Normal heart sounds. Pulmonary: Effort: Pulmonary effort is normal. Breath sounds: Normal breath sounds. Lymphadenopathy: Cervical: Cervical adenopathy present. Skin: General: Skin is warm and dry. Neurological: General: No focal deficit present. Mental Status: She is alert and oriented to person, place, and time. ASSESSMENT/PLAN: 1. Strep throat - ICD9: 034.0, ICD10: J02.0 - Discussed supportive care treatment with fluids, rest and analgesia. - Contagious dz precautions discussed- including considered contagious until on antibiotics for 24 hours - AMOXICILLIN 500 MG CAPSULE Tiny Vides MD documented in this encounter [facility] 12-10-2022 History of Present illness Narrative Formatting of this note might be differe nt from the original. Radiology Service Progress Note PATIENT NAME: Brandi Holcomb DATE OF SERVICE: December 10, 2022 TIME: 8:39 AM PATIENT IDENTITY VERIFICATION COMPLETED USING TWO (2) IDENTIFIERS: Name and Date of confirmed by patient verbally. FALL SCREENING: Has the patient had 2 falls in the last year or 1 fall with injury or currently using an Ambulatory Assistive Device (Walker, Cane, Wheelchair, Crutches, etc.)? No PATIENT GENDER DATA: Female. status: : No status: NO. PATIENT RELEVANT IMPLANT DATA REVIEWED: Not Applicable RADIOLOGY DEPARTMENT: General X-ray: Exam(s) Completed: Lower Extremity X-Ray(s): Ankle, Bilateral and Feet, Bilateral Upper Extremity X-Ray(s): Hand, bilateral PERIPHERAL IV DATA: Not applicable SIGNED BY: RT Autumn(R) December 10, 2022 8:39 AM documented in this encounter [facility] 10-14-2022 Instructions Dylan Noel MD - 10/14/2022 8:42 AM EDT Use cpsx-zha-ilykimc antibiotic ointment to the rash area Take all the precautions to avoid spreading as explained Follow-up with your family doctor for the urgent care Explained details documented in this encounter [facility] 10-14-2022 History of Present illness Narrative Formatting of this note is different fro m the original. Brandi Holcomb is a 47 year old FEMALE who presents with Rash (Painful itchy rash on right foot 4 days) 47 years old female presented with painful rash on the right foot Initially there was some itching sensation before the rash started in did not become blisters in the same area Stated that she had history of shingles in the foot in the past, it was confirmed by culture. The rash was similar to this rash She was treated for shingles at that time. She has history of chickenpox in the past Rash anywhere else. Denies being exposed to anything new She recently diagnosed with rheumatoid arthritis but has not been started on medication other than meloxicam yet No other problem at this visit History reviewed. No pertinent past medical history. There is no problem list on file for this patient. Current Outpatient Medications Medication Sig Dispense Refill meloxicam (MOBIC) 15 mg tablet TAKE ONE TABLET BY MOUTH EVERY DAY. TAKE WITH FOOD / MILK No current facility-administered medications for this visit. Social History Tobacco Use Smoking status: Never Smokeless tobacco: Never Alcohol Use: Not on file Tobacco Use: Never History reviewed. No pertinent family history. Review of Systems Skin: Positive for rash (Painful). All other systems reviewed and are negative. BP 130/70 Pulse 77 Temp 98.6 Resp 16 Wt 238 lb (108.0kg) SpO2 98% Physical Exam Vitals reviewed. Constitutional: General: She is not in acute distress. Appearance: Normal appearance. She is not ill-appearing or toxic-appearing. Cardiovascular: Rate and Rhythm: Normal rate. Heart sounds: Normal heart sounds. Pulmonary: Effort: Pulmonary effort is normal. Breath sounds: Normal breath sounds. Skin: Findings: Erythema and rash present. Comments: A band of vesicular erythematous rash on the ventral aspect of the ankle and proximal foot about 2 to 3 cm in size. No pustule. Clinically the appearance is similar to herpes zoster rash. Neurological: Mental Status: She is alert. I explained to patient that with history of shingles in the past and his band of rash is similar to herpes zoster rash although is not in typical area where shingles usually appears but with her underlying previous history I will treat her for shingles. I do not think we need to do any culture patient also agreed with that point. ASSESSMENT/PLAN: 1. Herpes zoster without complication - ICD9: 053.9, ICD10: B02.9 - VALACYCLOVIR 1 GRAM TABLET Use bika-hog-duaitud antibiotic ointment to the rash area Take all the precautions to avoid spreading as explained Follow-up with your family doctor for the urgent care Explained details Patient understand and agreed Dylan Noel MD documented in this encounter [facility] 12-25-2020 History of Present illness Narrative DATE OF SERVICE: 11/19/2020 REASON FOR VISIT: Urgency and frequency of urination with blood in the urine. HISTORY OF PRESENT ILLNESS: This is a 45-year-old female presented with urgency and frequency of urination for the last few days and also has blood in the urine now. No fever or chills. No other problems at this visit. REVIEW OF SYSTEMS: Review of other systems normal. ALLERGIES: VICODIN. MEDICATIONS: None. PHYSICAL EXAMINATION: She is awake, alert, not in distress. No dyspnea. Temperature 97.8, blood pressure 120/80, pulse 74, respirations 18, pulse oximetry 97% on room air. Pain score 8/10. HEENT: Unremarkable. Chest: Clear to auscultation. Heart: Regular rate and rhythm. No CVA tenderness. Abdomen: Benign. Urine dipstick was moderately positive for leukocyte esterase, also blood and protein. ASSESSMENT: Urinary tract infection. PLAN: Clinical plan was discussed with patient in detail. I gave her Macrobid 100 mg twice a day for 5 days with no refill. She should drink a lot of fluid. I will send the urine for culture as well. Patient understood and agreed. She will follow up with her doctor. Dylan Noel MD /[id number] SSI File#: [id number] END OF DOCUMENT / CHANGE LOG FOLLOWS Last Edited By Elec. Signed By Dylan Noel MD #[id number] Dylan Noel MD #[email or web address] on 12/26/2020 17:53 ET on 12/26/2020 17:53 ET Revision Number - 2 ^^^ Verified/Reviewed by 12/26/[address] [facility] PATIENT NAME: BRANDI HOLCOMB [address] [place] MEDICAL REC #: [id number] [place] [address] [facility] REPORT [facility] PHYSICIAN documented in this encounter [facility] Evaluation note Diagnosis Herpes zoster without complication- Primary Herpes zoster without mention of complication [facility] noteNo assessment information availableWPremier Health [facility] Work Phone: Evaluation note* Diagnosis Strep throat- Primary Streptococcal sore throat [facility] for referral (narrative)No reason for referral information availableBlU.S. Naval Hospital Work Phone: Summary Purpose Family History No Family History Records FoundNo Family History Records FoundNo Family History Records FoundNo Family History Records FoundNo Family History Records Found Advance Directives No Advanced Directives Records FoundNo Advanced Directives Records FoundNo Advanced Directives Records FoundNo Advanced Directives Records FoundNo Advanced Directives Records Found Chief Complaint and Reason for Visit Chief Complaint Pain Chief Complaint Pain Pain Chief Complaint PAIN- COPY PCP Chief Complaint Admit Date RIGHT ELBOW December 19, 2024 8:5 6am RM 2 December 19, 2024 9:1 2am Additional Source Comments INFORMATION SOURCE (unrecogn ized section and content) DATE CREATED AUTHOR [facility]/20[facility] [place] DATE CREATED AUTHOR AUTHOR'S ORGANIZ ATION 10/30/2023 [facility] ([place] DATE CREATED AUTHOR AUTHOR'S ORGANIZ ATION 12/23/2024 [facility] DATE CREATED AUTHOR AUTHOR'S ORGANIZ ATION 01/09/2025 JUDAH MASSILLO N DATE CREATED AUTHOR AUTHOR'S ORGANIZ ATION 01/20/2025 [facility] Source Comments (unrecognize d section and content) In the event this informatio n is protected by the Federal Confidentiality of Alcohol and Drug Abuse Patient Records regulations: The Federal rules restrict any use of the information to criminally investigate or prosecute any alcohol or drug abuse patient.[facility] the event this information is protected by the Federal Confidentiality of Alcohol and Drug Abuse Patient Records regulations: The Federal rules restrict any use of the information to criminally investigate or prosecute any alcohol or drug abuse patient.[facility] the event this information is protected by the Federal Confidentiality of Alcohol and Drug Abuse Patient Records regulations: The Federal rules restrict any use of the information to criminally investigate or prosecute any alcohol or drug abuse patient.[facility] Hospital[facility] the event this information is protected by the Federal Confidentiality of Alcohol and Drug Abuse Patient Records regulations: The Federal rules restrict any use of the information to criminally investigate or prosecute any alcohol or drug abuse patient.[facility] Reason for Visit (unrecogniz ed section and content) Reason Comments Rash Painful itchy rash o n right foot 4 days Reason Comments Sore Throat H/A x 1 day Care Teams (unrecognized sec tion and content) Team Status: Active Member Role Status Dates No Primary Care Physician Primary Care Provider Active Team Status: Inactive Member Role Status Dates No Primary Care Physician Primary Care Provider Active Dr. Jaime Hansen MD Attending Provider, Referring Provider Active Team Status: Active Member Role/Relationship Status Dates No Primary Care Physician Primary Care Provider Active Team Status: Active Member Role/Relationship Status Dates No Primary Care Physician Primary Care Provider Active Start: December 19, 2024 No Primary Care Physician Referring Provider Active Start: December 19, 2024 Dr. Devang Rhodes DO Attending Provider Active Start: December 19, 2024 Team Status: Inactive Member Role/Relationship Status Dates No Primary Care Physician Primary Care Provider Active Start: December 19, 2024 End: December 19, 2024 Dr. Geovani Arredondo MD Attending Provider Active S tart: December 19, 2024 End: December 19, 2024 Team Status: Inactive Member Role/Relationship Status Dates No Primary Care Physician Primary Care Provider Active Start: December 19, 2024 End: December 19, 2024 No Primary Care Physician Referring Provider Active Start: December 19, 2024 End: December 19, 2024 Dr. Devang Rhodes , DO Attending Provider Active Start: December 19, 2024 End: December 19, 2024 Goals (unrecognized section and content) Goals may be documented in a n alternate sectionGoals may be documented in an alternate sectionGoals may be documented in an alternate sectionGoals may be documented in an alternate sectionGoals may be documented in an alternate section FOR RECORDS PERTAINING TO PATIENTS WHO ARE OR HAVE BEEN ENROLLED IN A CHEMICAL DEPENDENCY/SUBSTANCEABUSE PROGRAM, SOME INFORMATION MAY BE OMITTED. This clinical summary was aggregated from multiple sources. Caution should be exercised in using it in the provision of clinical care. This summary normalizes information from multiple sources, and as a consequence, information in this document may materially change the coding, format and clinical context of patient data. In addition, data may be omitted in some cases. CLINICAL DECISIONS SHOULD BE BASED ON THE PRIMARY CLINICAL RECORDS. [employer] provides no warranty or guarantee of the accuracy or completeness of information in this document.
[2025-01-22] MEDS: Lactated Ringers 1,000 ML 15 ML IV (06:36)
--- NOTE | 2025-01-22 07:03 | PCM.PRE.AN2 ---
ASA Classification* ASA Classification ASA Classification: 3 Assessment & Plan Anesthesia* Anesthesia Assessment Anesthesia Assessment: Discussed sedation and/or anesthesia options, risks, benefits, and alternatives with patient/parents/legal guardian/POA. Questions invited. The patient/parents/legal guardian/POA seems to understand and agrees to proceed with anesthesia plan. Reviewed the physical assessment, medical history, allergy history and patient home medications list prior to surgery/procedure/anesthetic and documented any changes. Performed airway and anesthesia risk assessments. Anesthesia Type Anesthesia Type: General History Source History Obtained from:: Patient and Chart Anesthesia Focused Assessment* Temperature: 97.5 F Pulse Rate: 74 Blood Pressure: 126/79 Respiratory Rate: 18 Pulse Ox: 97 Oxygen Delivery Method: Room Air Airway Assessment Mouth opens: >3 cm Mallampati Score: I Teeth Condition: Partial (Patient has an upper partial. It will come out.) Neck Range of motion (ROM): Full ROM Labs Anesthesia Preop lab: CBC WBC 10.8 K/mm3 (4.4-11.0) 12/26/23 11:16 12/26/23 RBC 4.54 M/mm3 (4.2-5.4) 12/26/23 11:16 12/26/23 Hgb 13.7 g/dL (12.0-15.0) 12/26/23 11:16 12/26/23 Hct 42.7 % (37-47) 12/26/23 11:16 12/26/23 Plt Count 245 K/mm3 (150-450) 12/26/23 11:16 12/26/23 CHEMISTRY Potassium 3.7 mmol/L (3.5-5.1) 12/26/23 11:16 12/26/23 Sodium 138 mmol/L (136-145) 12/26/23 11:16 12/26/23 BUN 10 mg/dL (7-18) 12/26/23 11:16 12/26/23 Creatinine 0.72 mg/dL (0.55-1.02) 12/26/23 11:16 12/26/23 Glucose 95 mg/dL (74-106) 12/26/23 11:16 12/26/23 COAG Pre-Assessment Diagnosis/Proposed Procedure Planned Operative Procedure(s): RIGHT ELBOW EXICSION OF NODULE Anesthesia History Anesthesia History - personal lines underwriter: Anesthesia History - personal lines underwriter Hx Hospitalization No 01/15/25 13:10 Any Problems With Anesthesia No 01/15/25 13:10 Cholinesterase deficiency No 01/15/25 13:10 You/Your Family Experience No 01/15/25 13:10 fever (hyperthermia) with Relationship Recent Exposure to Contagious No 01/22/25 06:23 Disease Does patient have nerve No 01/15/25 13:10 stimulator Patient instructed to have device shut off --Does patient have Pacemaker No 01/22/25 06:23 or ICD? When Was Last Pacemaker Check QUESTION #4 FULL TEXT: You/Your Family Experience fever (hyperthermia) with Anesthesia Last Oral Intake Last Oral intake: Last Oral Intake NPO since 23:00 01/22/25 06:23 Meds taken in AM with sips of No 01/22/25 06:23 water? Meds patient instructed to take am of surgery PONV PONV - personal lines underwriter: PONV - personal lines underwriter Female Yes 01/15/25 13:10 HX of Motion Sickness No 01/15/25 13:10 HX of N/V After Surgery No 01/15/25 13:10 Non-Smoker Yes 01/15/25 13:10 Duration of Surgery greater No 01/15/25 13:10 than 60 minutes Number of Risk Factors 2 01/15/25 13:10 PONV Score Moderate Risk 01/15/25 13:10 Height & Weight Height & Weight: Anesthesia: Height & Weight Height 5 ft 4 in 01/22/25 06:23 Weight: 106.1 kg 01/22/25 06:23 Body Mass Index (BMI) 40.1 01/22/25 06:23 Respiratory Assessment Respiratory Assessment - personal lines underwriter: Respiratory Tract Infection Hx - personal lines underwriter Hx Respiratory Tract Infection No 01/15/25 13:10 STOP Sleep Apnea STOP Sleep Apnea - personal lines underwriter: STOP Sleep Apnea - personal lines underwriter Hx Hypertension No 01/15/25 13:10 Hx Sleep Apnea No 01/15/25 13:10 CPAP BIPAP Do you snore loudly (louder No 01/15/25 13:10 than talking or can be heard Do you often feel tired/ No 01/15/25 13:10 fatigued/ sleepy during daytime? Has anyone observed you stop No 01/15/25 13:10 breathing during sleep? STOP Results Negative 01/15/25 13:10 QUESTION #5 FULL TEXT : Do you snore loudly (louder than talking or can be heard through closed doors)? 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 Specify any problems Hx of Preganancy in last 3 No 01/15/25 13:10 Months Nurse Filling Out Transfusion [email or web address] 01/15/25 13:10 & Questions: Date: 01/15/25 01/15/25 13:10 Time: 13:14 01/15/25 13:10 Patient unable to answer at this time (ie. confused, unrespo /Reproduction History /Reproductive History - personal lines underwriter: /Reproductive Hx- personal lines underwriter Hx Now No 01/15/25 13:10 Gestational Age (in weeks): EDC: Hx Hx Para Hx Section SAB No 01/15/25 13:10 Active Medications Active Medications: Current Medications Generic Name Dose Route Start Last Admin Trade Name Freq PRN Reason Stop Dose Admin Cefazolin Sodium 2 gm/ Sodium 110 mls @ 200 mls/hr 01/22/25 07:30 Chloride IV 01/22/25 08:02 INTRAOP ONE Lactated Ringer's 1,000 mls @ 15 mls/hr 01/22/25 06:15 01/22/25 06:36 IV 15 mls/hr .Q48H LEW Administration PFSH Medical History Wears contact lenses Wears partial dentures Anxiety Smoker Rheumatoid arthritis Home Medications ?Medication ?Instructions ?Recorded ?Last Taken ?Type acetaminophen 325 mg tablet 325 mg PO ONCE PRN pain 12/19/24 Unknown History (Tylenol) etanercept 50 mg/mL (1 mL) 50 mg subcut QWEEK 12/19/24 01/10/25 History subcutaneous pen injector (Enbrel SureClick) folic acid 1 mg tablet 2 mg PO QDAY 12/19/24 01/21/25 History gabapentin 100 mg capsule 100 mg PO TID 12/19/24 Unknown History meloxicam 15 mg tablet 15 mg PO QDAY PRN pain 12/19/24 Unknown History methotrexate sodium 2.5 mg tablet 20 mg PO QWEEK 12/19/24 01/20/25 History paroxetine HCl 20 mg tablet (Paxil) 20 mg PO DAILY 01/22/25 01/21/25 History Allergy/AdvReac Type Severity Reaction Status Date / Time hydrocodone (From Vicodin) Allergy Vomiting Verified 01/22/25 06:19 Surgical History History of right knee surgery History of partial hysterectomy Social History Smoking Status: Current every day smoker tobacco type: cigarettes alcohol intake: current alcohol intake frequency: holidays/special occasions only Review of Systems (Anesthesia) ROS Narrative System reviewed and no additional complaints, except as documented.
--- NOTE | 2025-01-22 07:15 | HP.PCM_ITS ---
History and Physical Date of Admission: 01/22/25 [facility] [address] [place] [address] OFFICE VISIT Date of Service: 12/19/24 MR#: [id number] Acct: [id number] Name: MAXIMINO HOLCOMB Rep #: [id number] : 1975 Provider: Dr. Devang Rhodes DO Age/Sex: 49/F Location: [facility] [email or web address] Status: Signed Intake Vital Signs 12/19/2508:01 Height 5 ft 4 in Weight: 233 lb BMI 39.9 Intake Visit Reasons: RIGHT ELBOW Allergies acetaminophen (From Vicodin) Allergy (Verified 12/19/24 09:01) Vomitinghydrocodone (From Vicodin) Allergy (Verified 12/19/24 09:01) Vomiting Medications ?Medication ?Instructions ?Recorded ?Confirmed ?Type acetaminophen 325 mg tablet 325 mg PO ONCE PRN 12/19/24 12/19/24 His tory (Tylenol) etanercept 50 mg/mL (1 mL) 50 mg subcut QWEEK 12/19/24 12/19/24 His tory subcutaneous pen injector (Enbrel SureClick) folic acid 1 mg tablet 2 mg PO QDAY 12/19/24 12/19/24 History gabapentin 100 mg capsule 100 mg PO TID 12/19/24 12/19/24 History meloxicam 15 mg tablet 15 mg PO QDAY PRN 12/19/24 12/19/24 Hist ory methotrexate sodium 2.5 mg tablet 20 mg PO QWEEK 12/19/24 12/19/24 History [facility] Medical History (Updated 12/19/24 @ 10:[address] Devang Rhodes DO) Rheumatoid arthritis Surgical History (Updated 12/19/24 @ 09:04 by Sara Cabrera) History of right knee surgery History of partial hysterectomy Social History (Updated 12/19/24 @ 09:05 by Sara Cabrera) Smoking Status: Current every day smoker tobacco type: cigarettes alcohol intake: current alcohol intake frequency: holidays/special occasions only HPI RIGHT ELBOW Details: This documentation accurately reflects the service provided and the decisions made by me, Dr. Devang Rhodes DO 12/19/24 0755. Part of today?s visit was documented by Shirley COUCH, acting as scribe. MAXIMINO HOLCOMB is a 49 year old F referral from Dr. Hansen who is seropositive anti-CCP positive rheumatoid arthritis who also has lateral epicondylitis she is on methotrexate 20 mg/week and Enbrel 50 mg subcu once a week, meloxicam here today for right elbow pain that she has been having for 2 years. She denies any know injury and states that she thinks the pain is from arthritis. She does have a lump on the elbow that she states that Dr. Mulligan wants her to have it biopsied to see whether is is from her rheumatoid arthritis. She has had the lump for at least 4 years. She was diagnosed with rheumatoid 2 years ago. She denies having any treatment on the elbow. The nodule does bother her every time she rests her elbow down it aggravates. Ortho Exam General General: Yes no acute distress Neurologic: Yes alert and Yes oriented x3 Psychologic: Yes reasonable and appropriate Right Elbow Skin/Wound: No eccymosis, No erythema and No Swelling ELBOW: small 1.5cm nodule on tip of olecranon, it is mobile it is not infectious appearing there is no erythema there is no bursal swelling there is no joint effusion she got good elbow range of motion no collateral instability intact triceps tendon no pain with resisted extension No gross motor or sensory deficits Constitutional: Well-developed; well-nourished; in no acute distress Eyes: No jaundice ENT: Nares patent; no obvious deformity Cardiovascular: No cyanosis; clubbing; or edema Lymphatic: No adenopathy in area of examination Skin: No rashes or lesions in the area of examination and intact Neurologic: Alert and oriented x 3 Psychiatric: Mood and affect appropriate Supplemental Info 12/19/2024 x-ray right elbow: There is no significant arthrosis there is soft tissue swelling just posterior to the olecranon. No joint effusion Coding Level of Care Code Off vis,new,level 3 Diagnoses Rheumatoid nodule of right elbow M06.321 Laterality: right Assessment and Plan Assessment and Plan (1) Rheumatoid nodule of elbow: Status: Acute Qualifiers: Laterality: right Qualified Code(s): M06.321 - Rheumatoid nodule, right elbow Orders: Orders Elbow min 3 Views Today M25.521 - Pain in right elbow Plan Patient is here today for right elbow nodule with pain. I spoke with patient that the nodule on her elbow is highly suggestive of a rheumatoid nodule, and clinically I am not concerned of it being neoplastic it is not grown is consistent with a rheumatoid nodule. It does bother her daily, we can remove the nodule if she would want it to have it removed or we can leave it alone. My concern with removing the nodule is her rheumatoid medications cause immunosuppression and increase her risk for infection. Patient does wish to proceed with surgery for excision of right elbow nodule we will send it for pathology. She will need to hold her Meloxicam and Enbrel 1 week before surgery then she will also need to hold the Enbrel 1 week after surgery. Wrist benefits of surgery reviewed including risk of bleeding infection nerve artery tissue damage need with further surgery continued pain and nodule reoccurrence. Follow up at 2 weeks post-op or sooner if pain, swelling, numbness or associated symptoms, or concerns develop. All questions answered. Patient in agreement of plan. I have examined the patient and the H&P has been reviewed. There are no clinical changes since date of exam. 12/19/24 1019 <Electronically signed by Devang Rhodes DO> Date Devang Marks Signature: Date (if applicable) CC: ~
[2025-01-22] MEDS: Lactated Ringers 1,000 ML 1000 ML IV (07:25)
[2025-01-22] MEDS: Midazolam 2 MG/2 ML Syringe IV (07:25)
[2025-01-22] MEDS: Cefazolin 1 GM/5 ML Vial 2 GM IV (07:30)
--- NOTE | 2025-01-22 07:30 | LES_PTH ---
PATIENT: MAXIMINO HOLCOMB LOC: [facility] [place] U#:[id number] AGE/SX: 49/F ROOM: RE01/22/[address]: Dr. Devang Rhodes DO : 1975 BED: DIS: 01/22/2025 SPEC #: [id number] RECD: 01/22/25 08:39 STATUS: JERO REJennifer #: [id number] AUDREY: 01/22/25 07:[address]: Devang Rhodes DEPT: SURGICAL PATHOLOGY RECD BY: Jani Arias ENTERED: 01/22/25 10:30 SP TYPE: Lesion OTHR DR: Jeanne Glasgow, FOREST EXAMINER-C Tissues: A - Elbow, NOS Procedures: Special Stain Group I Surgery Specimen Level IV AFB Stain (control) GMS Stain (control) HEADER OPERATION: Right elbow excision of nodule PRE-OP DIAGNOSIS: Right elbow excision of nodule TISSUE SUBMITTED: A- Right elbow nodule MICROSCOPIC DIAGNOSIS A. Skin and soft tissue, right elbow, nodule, excision: - Necrotizing granulomas consistent with rheumatoid nodule. - Special stains for microorganisms are pending and will be reported in an addendum. MICROSCOPIC DESCRIPTION Slides are reviewed. GROSS DESCRIPTION A. Received in formalin labeled with the patient's name and date of . Designated as right elbow nodule is a 1.9 x 1.9 x 0.7 cm moyer-white, rubbery nodule focally surfaced by a 2.5 x 0.9 cm moyer skin ellipse devoid of orientation. The resection margin is inked black. Sectioning reveals moyer-white to yellow, fibrotic and rubbery cut surfaces. Entirely submitted in 3 cassettes as follows: A1: Skin tipsA2-A3: Cross-sections [place] 01/22/2025 CPT:43761,95031a9 ADDENDUM ADDENDUM ADDENDUM ADDENDUM ADDENDUM ADDENDUM ADDENDUM ADDENDUM ADDENDUM ADDENDUM ADDENDUM ADDENDUM ADDENDUM 01/30/2025 11:01 ADDENDUM 01/30/2025 11:01 ADDENDUM 01/30/2025 11:01 ADDENDUM 01/30/2025 11:01 ADDENDUM 01/30/2025 11:01 This addendum is to report the results of the special stains for microorganisms: AFB stain is negative for acid fast bacilli. PASD stain is negative for fungal organisms. All matched controls reacted appropriately. These tests were developed and their performance characteristics determined by [facility]. They may not have been cleared or approved by the U.S. Food and Drug Administration. The FDA has determined that such clearance or approval is not necessary.? The above immunohistochemical?markers and/or special stains have been reviewed by the Pathologist.
[2025-01-22] MEDS: Lidocaine 1% (5 ml sdv) 5 ML Vial IV (07:31)
[2025-01-22] MEDS: fentaNYL 100 MCG/2 ML Ampul IV (07:44)
[2025-01-22] MEDS: Bupiv/Epi 0.25% 30 ML Vial (07:50)
--- NOTE | 2025-01-22 08:06 | PCM.OPRPT ---
Operative Report (Standard) Operative Information Date of Procedure: 01/22/25 Pre-Operative Diagnosis: Right elbow nodule Post-Operative Diagnosis: Same Surgery/Procedure Performed: Excision of nodule right elbow speech professor: Yes Technical System Analyst: Maynor Vega Tasks completed by evaluation assistant: Opening & closing Type of Anesthesia: General and Local RN Documented Start/Stop Times: Operation Date: 01/22/25 07:30 Case Time Into Pre-Op 01/22/25 06:05 Out of Pre-Op 01/22/25 07:21 Anesthesia Start 01/22/25 07:25 Into Room 01/22/25 07:25 Procedure Start 01/22/25 07:45 Procedure Start Time: 07:45 Procedure Stop Time: 08:00 Select all DRAINS/GRAFTS/IMPLANTS that apply: None Estimated Blood Loss: 0 Specimen collected: Yes Description of specimen(s) removed: Right elbow nodule Description of surgery: Preoperative diagnosis: Right elbow nodule Postoperative diagnosis: Same Procedure: Excision of nodule right elbow Anesthesia: General With local EBL: 0 Complications: None Specimen: right elbow nodule sent for path Condition: Stable to PACU Indication for procedure: 49-year-old female patient with 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 risk benefits and alternatives were reviewed including risk of bleeding infection nerve, artery, bone, tissue damage, blood clot need for further surgery and continued pain. Procedure: Patient was met in the preoperative holding area once again the operative extremity identified by both patient and physician was marked patient was met by anesthesia and IV was started she was brought to the operating a wheeled cart transferred the operative table supine position anesthesia was started well-padded tourniquet was placed on the right upper extremity she was then prepped and draped in the usual sterile fashion with her arm across her chest. We did lesa out an elliptical incision over the nodule we did have a timeout to ensure the proper patient procedure and extremity are being contemplated. An Esmarch was used to exsanguinate the extremity and the tourniquet was inflated to 250 mmHg. 15 blade scalpel was used to make a incision through the skin and Littler scissors were used to dissected around the nodule there is no aggressive features to the nodule it came out with ease with gentle dissection I did remove a small piece of skin overlying top of it as well to avoid redundant tissue in the area the wound was thoroughly irrigated there was no underlying fascial perforation. The wound was closed with 3-0 Vicryl subcutaneous stitches and 3-0 nylon in the skin local anesthetic was injected into the skin only quarter percent Marcaine with epinephrine. Dressing was applied in form of Xeroform 4 x 4 Webril and an Atif wrap tourniquet was let down there was no intraoperative complications patient was brought back to PACU in stable condition Surgical Findings: nodule Complications Complications: No
--- NOTE | 2025-01-22 08:12 | EX.PCM.DISCH ---
Discharge Instructions Diet Discharge Diet: No restrictions Dressing / Incision Call your doctor if you observe: Shortness of breath and Chest pain Additional Dressing/Incision Instructions:: Limit lifting right upper extremity to less than 2 pounds. Encourage full elbow flexion extension supination and pronation immediately. Must keep bandage in incisional area clean. Do not remove bandage for 5 days postop then may remove and begin showering over incisional area with antibacterial soap and warm water but do not submerge the incision in for 3 weeks postop such as any tub or pool. After dressing removed incision should be cleaned daily with antibacterial soap warm water and a large Band-Aid or soft dressing applied. Do not allow animals near the incision and avoid dirty areas. Do not take other pain medication than what was prescribed without discussion with your physician. Okay to supplement with OTC Tylenol 1000 mg 4 times a day if needed and may resume meloxicam immediately. Hold 1 dose Enbrel postoperatively. Follow Up Care Please Follow Up With: Devang Rhodes DO When: 2 weeks Test Results: Test results from this visit will be discussed in further detail at your follow-up appointment, if applicable. Discharge Plan Admission Primary Reason for Your Visit: Right elbow nodule excision Attending Provider: Devang Rhodes Primary Care Provider: Jeanne Glasgow Instructions Print Language: Wolof Discharge Orders/Prescriptions Prescriptions: New tramadol 50 mg tablet 50 mg PO Q6H PRN (Reason: pain) Qty: 6 0RF cephalexin 500 mg capsule 1,000 mg PO Q8H Qty: 4 0RF Rx Instructions: Take 2 tabs before you go to bed and 2 tabs after 5 AM morning after surgery when you wake up Continued methotrexate sodium 2.5 mg tablet 20 mg PO QWEEK folic acid 1 mg tablet 2 mg PO QDAY meloxicam 15 mg tablet 15 mg PO QDAY PRN (Reason: pain) gabapentin 100 mg capsule 100 mg PO TID Patient Comments: pt has not been taking acetaminophen [Tylenol] 325 mg tablet 325 mg PO ONCE PRN (Reason: pain) paroxetine HCl [Paxil] 20 mg tablet 20 mg PO DAILY Held Enbrel SureClick 50 mg/mL (1 mL) pen injector 50 mg subcut QWEEK Hold Instructions: Hold 1 dose postoperatively Referrals / Follow Up: Jeanne Glasgow NP-C [Primary Care Provider] - Disposition Disposition (needs filled in before D/C Order can be placed): Home, Self Care
--- NOTE | 2025-01-22 08:13 | PCM.POST.ANE ---
Anesthesia: Postop Eval I Current Vital Signs Temperature: 97.2 F Pulse Rate: 74 Blood Pressure: 124/67 Respiratory Rate: 14 Pulse Ox: 95 Oxygen Delivery Method: Simple Mask Assessment Airway patent: Yes Spontaneous unlabored respirations: Yes Mental status: Awake nausea: No Vomiting: No Anesthesia Complication: No Fluid Hydration Crystalloid volume administer (ml): 1,000 Total IV fluid infused: 1,000 Progress Note Anesthesia document: Postop Eval 1 completed: Yes
[2025-01-22] MEDS: Cefazolin 1 GM/50 ML BAG IV (09:04)
--- NOTE | 2025-01-22 12:22 | POSTOPAN2_ITS ---
Anesthesia Postop Eval I Sum Postop Eval Completion status Anesthesia document: Postop Eval 1 completed: Yes Anesthesia Postop Eval I Summary Anesthesia Postop Eval I Summary: Anesthesia Postop Eval I: Assessment Summary Airway patent Yes 01/22/25 08:14 [email or web address] [email or web address].[email or web address] Spontaneous unlabored Yes 01/22/25 08:14 WASHROOM [email or web address].[email or web address] respirations Mental status Awake 01/22/25 08:14 WASHROOM [email or web address].[email or web address] nausea No 01/22/25 08:14 WASHROOM OPERATOR.HBARR Vomiting No 01/22/25 08:14 WASHROOM OPERATOR.HBARR Anesthesia Postop Eval I: Fluid Summary Crystalloid volume administer 1,000 01/22/25 08:14 WASHROOM [email or web address].HBARR (ml) Colloids volume administered ( ml) Blood Product volume administered (ml) Total IV fluid infused 1,000 01/22/25 08:14 WASHROOM OPERATOR.HBARR Anesthesia Postop Eval I: Summary Notes Anesthesia Complication No 01/22/25 08:14 WASHROOM OPERATOR.HBARR Anesthesia Complication Comment: Post-operative progress note Anesthesia: Postop Eval II Evaluation Mental status: Awake and Calm Pain Level: 0 nausea: No Vomiting: No Complications Anesthesia Complication: No
--- NOTE | 2025-01-22 12:22 | PCM.POSTANE2 ---
Anesthesia Postop Eval I Sum Postop Eval Completion status Anesthesia document: Postop Eval 1 completed: Yes Anesthesia Postop Eval I Summary Anesthesia Postop Eval I Summary: Anesthesia Postop Eval I: Assessment Summary Airway patent Yes 01/22/25 08:14 PACKAGER [email or web address] Spontaneous unlabored Yes 01/22/25 08:14 PACKAGER HEAD.HBARR respirations Mental status Awake 01/22/25 08:14 [email or web address] HEAD.HBARR nausea No 01/22/25 08:14 PACKAGER HEAD.HBARR Vomiting No 01/22/25 08:14 PACKAGER HEAD.HBARR Anesthesia Postop Eval I: Fluid Summary Crystalloid volume administer 1,000 01/22/25 08:14 [email or web address] HEAD.HBARR (ml) Colloids volume administered ( ml) Blood Product volume administered (ml) Total IV fluid infused 1,000 01/22/25 08:14 PACKAGER HEAD.HBARR Anesthesia Postop Eval I: Summary Notes Anesthesia Complication No 01/22/25 08:14 [email or web address] HEAD.HBARR Anesthesia Complication Comment: Post-operative progress note Anesthesia: Postop Eval II Evaluation Mental status: Awake and Calm Pain Level: 0 nausea: No Vomiting: No Complications Anesthesia Complication: No
== END 2025-01-22 09:50 | disposition home or self-care (01) ==
LOC: SDC 06:03 → AC 06:04
PROVIDERS: PCP Nurse Practitioner Family; Referring Provider Orthopaedic Surgery; Visit Provider Orthopaedic Surgery
PROC: (CPT 24120; principal; 2025-01-22 07:15)
DX: M06.321 Rheumatoid nodule, right elbow (principal); Z79.899 Other long term (current) drug therapy; F17.210 Nicotine dependence, cigarettes, uncomplicated
CPT/HCPCS: 24120; 01740; 88305; 88312